=== PATIENT | male | born 1950 | race Caucasian/White ===

== ENCOUNTER 2018-10-04 07:09 | Day surgery (SDC) | payer MEDICARE, OTHER ==
[~2018-10-04] VITALS: Ht 177.8 cm; Wt 104.3 kg
[~2018-10-04 07:09] MED LIST: ASPIR-LOW81 MG PO; CENTRUM SILVER1 EAC6 PO; COZAAR25 MG PO; FAMOTIDINE20 MG PO; NEURONTIN300 MG PO; SIMVASTATIN10 MG PO
--- NOTE | 2018-10-04 11:54 | NUR ---
10/04/18 1154 Ibeth Sánchez SN 1147- PT ARRIVES IN PACU. PT IS NONAROUSABLE TO STIMULI. RESPIRATIONS ARE EVEN AND UNLABORED. 02 SAT'S MID TO HIGH 90'S ON 6 LITERS VIA MASK. OPA IN PLACE.
--- NOTE | 2018-10-04 12:49 | NUR ---
PT HERE TO GET MORE AWAKE TAKING TAXI TO [facility] FOR NIGHT.
--- NOTE | 2018-10-04 14:45 | NUR ---
MORE AWAKE. DRANK JUICE AND WATER.
--- NOTE | 2018-10-05 06:17 | OR ---
[facility] [address] [place], [place] [address] Signed DATE OF OPERATION: 10/04/2018 SURGEON: Sergo Palma MD PREOPERATIVE DIAGNOSES: 1. Distal esophageal dysphagia. 2. Personal history of Schatzki's ring status post dilation. 3. Personal history of gastric polyps. 4. Personal history of colonic polyps. 5. A sister with a history of colonic polyps. POSTOPERATIVE DIAGNOSES: 1. Moderate gastroduodenitis. 2. Distal esophagitis with possible shallow ulcer at GE junction. 3. Inflamed proximal multiple gastric polyps. 4. 4 mm rectal polyps x2. PROCEDURE: 1. EGD with CLOtest and biopsies of the pyloric bulb, antrum, GE junction with balloon dilation of GE junction (18 mm x 54-Austrian). 2. Colonoscopy with cold biopsies. ESTIMATED BLOOD LOSS: None. FINDINGS: No obvious Schatzki's ring visualized. INDICATIONS: Jensen is a 68-year-old gentleman, who was asked to see me for both upper and lower endoscopy. He talked about esophageal dysphagia to solid foods. He said in 2008 he had a barium swallow which showed a Schatzki's ring. Dr. Rankin dilated that with the balloon in 2008. He said his symptoms have returned. Dr. Rankin also mentioned some benign-appearing proximal gastric polyps. In addition, Jensen has had at least three colonoscopies in his life. He said he had colonic polyps removed at least twice and his sister has had colonic polyps removed. He has been on the 5-year rotation. He said his last colonoscopy was in 2010. He has no lower GI complaints. In the office, I gave him a pamphlet on both upper and lower endoscopy. We did review the nature of the 2 tests along with the risks including, but not limited to gas bloating, crampy abdominal pain, bleeding, perforation, requiring surgery, and missed diagnosis. He also Electronically Signed By: SERGO PALMA MD 10/05/18 0617 PATIENT NAME: JENSEN BEE OPERATIVE REPORT DATE OF : 50 REPORT #: [id number] PHYSICIAN: SERGO PALMA MD PCP: NO PRIMARY CARE PHYSICIAN REPORT IS CONFIDENTIAL AND NOT TO BE RELEASED WITHOUT AUTHORIZATION [facility] [address] [place] [id number] Signed understands the need for IV conscious sedation. In the meantime, we did send him for a barium swallow and he does have a very focal narrow area right at the GE junction. The barium pill held up there for several minutes and went through once he swallowed some liquids. He had expressed understanding and wished to proceed. This includes dilation. DESCRIPTION OF PROCEDURE: Jensen was taken into the endoscopy suite and placed in the supine semi-recumbent position. He was given a total of 10 mg of Versed and 200 mcg of fentanyl to cover both cases. Unfortunately, this was not enough. We had to bring our anesthesia provider in with propofol and some ketamine in order to finish a colonoscopy. He also received 8 mg of Zofran and 12.5 mg of Phenergan preoperatively because of his history of nausea with anesthesia. Posterior oropharynx was anesthetized with lidocaine spray. A bite block was utilized for the case. The adult gastroscope was then introduced and advanced under direct visualization of camera without difficulty. He had some saliva and so forth at the GE junction and held up just slightly as it went through, but did not continue to drag. The scope then passed readily out into the duodenum. He clearly has moderate gastroduodenitis. We took biopsies of the duodenum, pyloric bulb and the antrum for pathologic review. We took another biopsy from the antrum for CLOtest. Upon retroflexion of scope he does have multiple inflamed benign-appearing polyps in the proximal half of the stomach. We did take a couple of biopsies of the polyps for pathologic review. He does not have an obvious hiatal hernia with retroflexion of the scope. No ulcerations. No gastric or esophageal varices. The scope was withdrawn up through the area of the GE junction, which was compliant without obvious stricture. We certainly did see a Schatzki's ring. He did have fairly significant inflammatory changes just above the Z-line. There maybe even been a slight ulcer on the one side. It was more consistent with distal esophagitis. We went ahead and took a couple of biopsies in this area. The middle and upper esophagus were unremarkable. After this, we passed our 18 mm (54-Austrian) balloon dilator and we inflated it the GE junction. For some reason, it held for only about a minute and then it had ruptured and so it did not hold the pressure. Nevertheless, we did not feel too strongly about that not seeing an obvious Schatzki's ring. We went ahead and examined the area and we did not see any obvious crack in the mucosa, but it seemed widely patent at the time. Consequently, we did not proceed with an additional balloon or Savary dilator. After this, the gas was suctioned out and the gastroscope removed. Jensen tolerated the procedure quite well. Jensen was then rotated into the left lateral decubitus position. He was maintained on IV sedation with Versed and fentanyl. A digital rectal exam was performed. There was very minimal hemorrhoidal tissue. He had good sphincter tone. A little induration to the prostate but not particularly enlarged. The adult colonoscope was then introduced and we advanced up into the mid colon. He simply could not tolerate advancing the scope. We therefore had an anesthesia provider to come and add some propofol and ketamine. His abdomen was then softened quite nicely and we passed the scope readily Electronically Signed By: SERGO PALMA MD 10/05/18 0617 PATIENT NAME: JENSEN BEE OPERATIVE REPORT DATE OF : 50 REPORT #: [id number] PHYSICIAN: SERGO PALMA MD PCP: NO PRIMARY CARE PHYSICIAN REPORT IS CONFIDENTIAL AND NOT TO BE RELEASED WITHOUT AUTHORIZATION [facility] [address] [place], [place] [address] Signed into the cecum itself. His prep was good. We could easily see the appendiceal orifice, the Chitimacha's foot and the ileocecal valve. The scope was then slowly withdrawn. We saw no pathology throughout the entire colon. We saw no diverticulosis. He had just a couple small polyps in the rectum, which were removed with the help of the cold biopsy forceps. Upon retroflexion of scope it looks like he has some very tiny internal hemorrhoid tissue and/or skin tags. After this, the gas was suctioned out and colonoscope removed. Jensen tolerated his procedure quite well. RECOMMENDATIONS: Jensen will follow up my office in 7 to 14 days to review his results. In the meantime, he has moved to a new area and he has no primary care provider. He is on losartan and simvastatin and we did notice he has tactic he had tachycardia over 100 from the time he entered the room to the time he left. There is a history of a previous abnormal EKG and coronary artery disease and hypertension. Consequently, we had encouraged him to seek a primary care provider sooner rather than later. He did mention Lety Otoole at the [facility]. Sergo Palma MD ALB/MODL /[id number] cc: MD Roxanne Moore, [facility] in [place], [place] Lety Otoole PA-C Copies: SERGO PALMA MD, AMANDA PAC ~ Electronically Signed By: SERGO PALMA MD 10/05/18 0617 PATIENT NAME: JENSEN BEE OPERATIVE REPORT DATE OF : 50 REPORT #: [id number] PHYSICIAN: SERGO PALMA MD PCP: NO PRIMARY CARE PHYSICIAN REPORT IS CONFIDENTIAL AND NOT TO BE RELEASED WITHOUT AUTHORIZATION
--- NOTE | 2018-10-05 10:36 | NUR ---
10/04/18 1700 PT AMB TO [facility]. ATE SOUP AND SANDWICH. ALERT AND ORIENTED. REQ TO GO TO [facility] BY TAXI. STATES HE HAS C PAP MACHINE IN [facility] AND INSTRUCTED TO BE SURE TO USE EVEN IF JUST A NAP. STATES HE ALWAYS USES IT.
== END 2018-10-04 17:05 | disposition home or self-care (01) ==
LOC: DS 07:09 → OPS 07:09 → DS 10:30 → OPS 10:30
PROVIDERS: Colon & Rectal Surgery
PROC: 0DB78ZX Excision of Stomach, Pylorus, Via Natural or Artificial Opening Endoscopic, Diagnostic (ICD-10-PCS; 2018-10-04)
PROC: 0DB68ZX Excision of Stomach, Via Natural or Artificial Opening Endoscopic, Diagnostic (ICD-10-PCS; 2018-10-04)
PROC: 0DB48ZX Excision of Esophagogastric Junction, Via Natural or Artificial Opening Endoscopic, Diagnostic (ICD-10-PCS; 2018-10-04)
PROC: 0DBP8ZX Excision of Rectum, Via Natural or Artificial Opening Endoscopic, Diagnostic (ICD-10-PCS; 2018-10-04)
PROC: 0D758ZZ Dilation of Esophagus, Via Natural or Artificial Opening Endoscopic (ICD-10-PCS; principal; 2018-10-04 10:30)
PROC: 0DB98ZX Excision of Duodenum, Via Natural or Artificial Opening Endoscopic, Diagnostic (ICD-10-PCS; 2018-10-04 10:30)
DX: Z12.11 Encounter for screening for malignant neoplasm of colon (principal); K62.1 Rectal polyp; K29.50 Unspecified chronic gastritis without bleeding; K29.80 Duodenitis without bleeding; K20.9 Esophagitis, unspecified; K31.7 Polyp of stomach and duodenum; I10 Essential (primary) hypertension; E78.00 Pure hypercholesterolemia, unspecified; Z86.010 Personal history of colon polyps; Z83.71 Family history of colonic polyps; Z98.890 Other specified postprocedural states; Z88.8 Allergy status to other drugs, medicaments and biological substances; Z79.82 Long term (current) use of aspirin; Z79.899 Other long term (current) drug therapy
CPT/HCPCS: 86677; C1726; J2250; J2405; J2550; J2704; J3010; J7120

== ENCOUNTER 2023-01-10 16:36 | Observation (INO) | payer MEDICARE, OTHER ==
[~2023-01-10] VITALS: Ht 177.8 cm; Wt 100.5 kg
--- OUTSIDE RECORDS SUMMARY | ~2023-01-10 | XMS | Continuity of Care Document ---
Demographics + + + | Address | [address] | | | [place] [address] | + + + | Preferred Language | Unknown | + + + | Marital Status | | + + + | Christianity Affiliation | Unknown | + + + | Race | White | + + + | Ethnic Group | Not or | + + + Author + + + | Author | [facility] | + + + | Organization | [facility] | + + + | Address | [address] [facility] | | | [place] [address] | + + + | Phone | | + + + Care Team Providers + + + + | Care Gas Well Drilling Manager Name | Role | Phone | + + + + Unavailable | Unavailable | + + + + Unavailable | Unavailable | + + + + Unavailable | Unavailable | + + + + Unavailable | Unavailable | + + + + Allergies and Intolerances + + + + + + | date | description | facility | reaction | severity | + + + + + + | (no date) | Tamsulosin | [facility] | (no reaction) | (no severity) | [facility] | | | + + + + + + | (no date) | Niacin | [facility] | (no reaction) | (no severity) | [facility] | | | + + + + + + | (no date) | Rash | [facility] | (no reaction) | (no severity) | [facility] | | | + + + + + + | (no date) | Niacin | [facility] | (no reaction) | (no severity) | [facility] | | | + + + + + + | (no date) | Niacin | [facility] | (no reaction) | (no severity) | [facility] | | | + + + + + + | (no date) | Tamsulosin | [facility] | (no reaction) | (no severity) | | [facility] | | | + + + + + + | (no date) | niacin | [facility] | (no reaction) | (no severity) | + + + + + + | (no date) | tamsulosin | [facility] | (no reaction) | (no severity) | + + + + + + | (no date) | Tamsulosin | [facility] | (no reaction) | (no severity) | | | | [facility] | | | + + + + + + Encounters No information. Functional Status No information. Immunizations No information. Medications + + + + | date | description | facility | + + + + | 2023-01-02 00:00 | IRON,CARBONYL/VIT C/VIT | [facility] | | | B12/FA | | + + + + | 2023-01-02 00:00 | ASPIRIN | [facility] | + + + + | 2023-01-02 00:00 | ASCORBIC ACID | [facility] | + + + + | 2023-01-02 00:00 | AMLODIPINE BESYLATE | [facility] | + + + + | 2023-01-02 00:00 | FAMOTIDINE | [facility] | + + + + | 2023-01-02 00:00 | SIMVASTATIN | [facility] | + + + + | 2023-01-02 00:00 | METOPROLOL SUCCINATE | [facility] | + + + + | 2023-01-02 00:00 | LOSARTAN POTASSIUM | [facility] | + + + + Problems + + + + | date | description | facility | + + + + | 2021-05-23 18:20:50 | Encephalocele, unspecified | [facility] | + + + + | 2022-12-16 07:40 | UNILATERAL PRIMARY | [facility] | | | OSTEOARTHRITIS, UNSPE | | + + + + | 2022-12-16 07:40 | UNILATERAL PRIMARY | [facility] | | | OSTEOARTHRITIS, LEFT KNEE | | + + + + | 2022-12-16 09:30 | UNILATERAL PRIMARY | [facility] | | | OSTEOARTHRITIS, UNSPE | | + + + + | 2023-01-02 06:05 | Essential (primary) | [facility] | | | hypertension | | + + + + | 2023-01-02 06:05 | UNILATERAL PRIMARY | [facility] | | | OSTEOARTHRITIS, UNSPE | | + + + + | 2023-01-02 06:05 | UNILATERAL PRIMARY | [facility] | | | OSTEOARTHRITIS, LEFT KNEE | | + + + + | 2023-01-02 06:05 | ALLERGY STATUS TO OTH | [facility] | | | DRUG/MEDS/BIOL SUBST STATUS | | | | | | + + + + | 2023-01-02 09:15 | UNILATERAL PRIMARY | [facility] | | | OSTEOARTHRITIS, UNSPE | | + + + + Procedures No information. Results/Labs +--------+--------+ +---------+--------+---------+ | test | date | facility | value | unit | notes | +--------+--------+ +---------+--------+---------+ + + | Result panel 1 | + + + + +-------+ + + + | SARS-COV-2 | 2020-11-05 | [facility] | Negative | (missing) | (missing) | | (COVID19) | 15:22:21 | | | | | | HOLOGIC | | | | | | | NAAT/RNA | | | | | | | MOLECULAR | | | | | | + + +-------+ + + + | SARS-COV-2 | 2020-11-05 | [facility] | Negative | (missing) | First COVID | | (COVID19) | 15:22:21 | | | | test?: yes | | HOLOGIC | | | | | Are you | | NAAT/RNA | | | | | employed in | | MOLECULAR | | | | | healthcare?: | | | | | | | no | | | | | | | Symptomatic | | | | | | | as defined | | | | | | | by the CDC?: | | | | | | | no If | | | | | | | Symptomatic, | | | | | | | What is the | | | | | | | date of | | | | | | | onset?: | | | | | | | Hospitalized | | | | | | | ?: no In | | | | | | | ICU?: no | | | | | | | Resident in | | | | | | | a congregate | | | | | | | care | | | | | | | settings?: | | | | | | | no | | | | | | | ?: | | | | | | | no | + + +-------+ + + + + + | Result panel 2 | + + + + + +-------+ + + | | 2023-01-02 | [facility] | 6.0 | (missing) | (missing) | | (unavailable | [facility]55[facility]07 [facility] | | | | + + + +-------+ + + + + | Result panel 3 | + + + + + +--------+ + + | | 2023-01-02 | [facility] | 64.0 | (missing) | (missing) | | (unavailable | [facility]55[facility]07 [facility] | | | | + + + +--------+ + + + + | Result panel 4 | + + + + + +--------+ + + | | 2023-01-02 | [facility] | 20.3 | (missing) | (missing) | | (unavailable | [facility] | | | | + + + +--------+ + + + + | Result panel 5 | + + + + + +-------+ + + | | 2023-01-02 | [facility] | 7.3 | (missing) | (missing) | | (unavailable | [facility] | | | | + + + +-------+ + + + + | Result panel 6 | + + + + + +-------+ + + | | 2023-01-02 | [facility] | 3.3 | (missing) | (missing) | | (unavailable | [facility] | | | + + + +-------+ + + + + | Result panel 7 | + + + + + +-------+ + + | | 2023-01-02 | [facility] | 5.1 | (missing) | (missing) | | (unavailable | [facility] | | | + + + +-------+ + + + + | Result panel 8 | + + + + + +-------+---------+ + | | 2023-01-02 | [facility] | 100 | mg/dL | (missing) | | (unavailable | [facility]55[facility]07 [facility] | | | | + + + +-------+---------+ + + + | Result panel 9 | + + + + + +------+---------+ + | | 2023-01-02 | [facility] | 13 | mg/dL | (missing) | | (unavailable | [facility]07 [facility] | | | | + + + +------+---------+ + + + | Result panel 10 | + + + + + +--------+---------+ + | | 2023-01-02 | [facility] | 0.88 | mg/dL | (missing) | | (unavailable | [facility]55[facility]07 [facility] | | | | + + + +--------+---------+ + + + | Result panel 11 | + + + + + +------+ + + | | 2023-01-02 | [facility] | 91 | (missing) | (missing) | | (unavailable | [facility] | | | + + + +------+ + + + + | Result panel 12 | + + + + + +---------+ + + | | 2023-01-02 | [facility] | 14.77 | (missing) | (missing) | | (unavailable | [facility]55[facility]07 [facility] | | | | + + + +---------+ + + + + | Result panel 13 | + + + + + +--------+ + + | | 2023-01-02 | [facility] | 5.24 | (missing) | (missing) | | (unavailable | [facility] | | | + + + +--------+ + + + + | Result panel 14 | + + + + + +-------+ + + | | 2023-01-02 | [facility] | 142 | (missing) | (missing) | | (unavailable | [facility] | | | + + + +-------+ + + + + | Result panel 15 | + + + + + +-------+ + + | | 2023-01-02 | [facility] | 3.7 | (missing) | (missing) | | (unavailable | [facility] | | | | + + + +-------+ + + + + | Result panel 16 | + + + + + +-------+ + + | | 2023-01-02 | [facility] | 105 | (missing) | (missing) | | (unavailable | [facility]07 [facility] | | | + + + +-------+ + + + + | Result panel 17 | + + + + + +------+ + + | | 2023-01-02 | [facility] | 31 | (missing) | (missing) | | (unavailable | [facility] | | | + + + +------+ + + + + | Result panel 18 | + + + + + +-------+ + + | | 2023-01-02 | [facility] | 9.7 | (missing) | (missing) | | (unavailable | [facility] | | | + + + +-------+ + + + + | Result panel 19 | + + + + + +-------+---------+ + | | 2023-01-02 | [facility] | 8.8 | mg/dL | (missing) | | (unavailable [facility]55[facility]07 [facility] | | | | + + + +-------+---------+ + + + | Result panel 20 | + + + + + +-------+ + + | | 2023-01-02 | [facility] | 7.6 | (missing) | (missing) | | (unavailable | [facility] | | | | + + + +-------+ + + + + | Result panel 21 | + + + + + +-------+ + + | | 2023-01-02 | [facility] | 4.1 | (missing) | (missing) | | (unavailable [facility]07 [facility] | | | | + + + +-------+ + + + + | Result panel 22 | + + + + + +-------+ + + | | 2023-01-02 | [facility] | 3.5 | (missing) | (missing) | | (unavailable [facility]07 [facility] | | | | + + + +-------+ + + + + | Result panel 23 | + + + + + +--------+ + + | | 2023-01-02 | [facility] | 1.17 | (missing) | (missing) | | (unavailable [facility]07 [facility] | | | | + + + +--------+ + + + + | Result panel 24 | + + + + + +--------+ + + | | 2023-01-02 | [facility] | 17.3 | (missing) | (missing) | | (unavailable | [facility] | | | + + + +--------+ + + + + | Result panel 25 | + + + + + +-------+ + + | | 2023-01-02 | [facility] | 1.0 | (missing) | (missing) | | (unavailable | [facility] | | | + + + +-------+ + + + + | Result panel 26 | + + + + + +------+ + + | | 2023-01-02 | [facility] | 21 | (missing) | (missing) | | (unavailable | [facility] | | | + + + +------+ + + + + | Result panel 27 | + + + + + +------+ + + | | 2023-01-02 | [facility] | 32 | (missing) | (missing) | | (unavailable | [facility] | | | + + + +------+ + + + + | Result panel 28 | + + + + + +------+ + + | | 2023-01-02 | [facility] | 87 | (missing) | (missing) | | (unavailable | [facility] | | | + + + +------+ + + + + | Result panel 29 | + + + + + +--------+ + + | | 2023-01-02 | [facility] | 51.4 | (missing) | (missing) | | (unavailable | [facility] | | | | + + + +--------+ + + + + | Result panel 30 | + + + + + +--------+ + + | | 2023-01-02 | [facility] | 98.1 | (missing) | (missing) | | (unavailable | [facility] | | | | + + + +--------+ + + + + | Result panel 31 | + + + + + +--------+ + + | | 2023-01-02 | [facility] | 33.0 | (missing) | (missing) | | (unavailable | [facility] | | | + + + +--------+ + + + + | Result panel 32 | + + + + + +--------+ + + | | 2023-01-02 | [facility] | 33.7 | (missing) | (missing) | | (unavailable | [facility] | | | | + + + +--------+ + + + + | Result panel 33 | + + + + + +--------+ + + | | 2023-01-02 | [facility] | 12.6 | (missing) | (missing) | | (unavailable | [facility] | | | + + + +--------+ + + + + | Result panel 34 | + + + + + +-------+ + + | | 2023-01-02 | [facility] | 157 | (missing) | (missing) | | (unavailable [facility] | | | + + + +-------+ + + Social History No information. Vital Signs + + + +---------+ | date | measurement | value | units | + + + +---------+ | 2022-12-20 00:00 | BMI | 32.4 | kg/m2 | + + + +---------+ | 2022-12-20 00:00 | height_metric | 177.8 | cm | + + + +---------+ | 2022-12-20 00:00 | height_standard | 70 | in | + + + +---------+ | 2022-12-20 00:00 | weight_metric | 102.27 | kg | + + + +---------+ | 2022-12-20 00:00 | weight_standard | 225.47 | lb | + + + +---------+ | 2023-01-02 00:00 | BP_diastolic | 74 | mmHg | + + + +---------+ | 2023-01-02 00:00 | BP_systolic | 112 | mmHg | + + + +---------+ | 2023-01-02 00:00 | heart_rate | 87 | /min | + + + +---------+ | 2023-01-02 00:00 | o2_saturation | 93 | % | + + + +---------+ | 2023-01-02 00:00 | respiration_rate | 17 | /min | + + + +---------+ | 2023-01-02 00:00 | temperature_metric | 36.67 | C | | | | | | + + + +---------+ | 2023-01-02 00:00 | | 98 | F | | | temperature_standar | | | | | d | | | + + + +---------+"
[~2023-01-10 16:36] MED LIST changes: +IRON 100 PLUS1 EACH PO; +METOPROLOL SUCC25 MG PO; +NORCO 10-325 T1 EACH PO; +NORVASC2.5 MG PO; +OMEPRAZOLE20 MG PO; +VITAMIN C250 MG PO
[2023-01-10 18:19] VITALS: BP 141/77
--- NOTE | 2023-01-10 19:15 | NUR ---
REPORT RECEIVED FROM MIRIAN GARCIA. pt RESTING IN BED, MIRIAN SPENCER AT BEDSIDE FINISHING ADMISSION. pt DENIES NEEDS AT THIS TIME. LEFT LEG ELEVATED ON PILLOW. MIGUEL WRAP IN PLACE, CDI. CALL LIGHT IN REACH. pt VERBALIZES UNDERSTANDING TO USE CALL LIGHT WHEN FINISHED.
[2023-01-10 20:15] VITALS: BP 128/67
--- NOTE | 2023-01-10 20:15 | NUR ---
PHONE CALL RETURNED TO DR. BLANCA. UPDATED ON pt LABS. TELEPHONE ORDER RECEIVED FOR SCHEDULED ZYRTEC DAILY, REPEATED BACK TO VERIFY. ORDER UPDATED. pt VOIDING IN URINAL AT THIS TIME, BRUCE ELI IN ROOM.
--- NOTE | 2023-01-10 20:16 | NUR ---
PATIENTS VITAL SIGNS AND OUTPUT MEASURED AND DOCUMENTED. ROOM TIDIED, CALL LIGHT LEFT WITHIN REACH, AND FRESH ICE WATER PROVIDED. NO OTHER IMMEDIATE NEEDS AT THIS TIME.
--- NOTE | 2023-01-10 20:59 | NUR ---
pt RESTING IN BED AWAKE, IV SITE FLUSHED WNL. IV ANTIBIOTIC INFUSING. pt DENIES PAIN. STATES "SOME STIFFNESS". DENIES NEED FOR PRN MEDICATION. ASSESSMENT COMPLETE. PHONE CALL TO PA, TELEPHONE ORDER FOR TYLENOL PRN AND VENOUS FOOT PUMPS. ORDERS REPEATED BACK TO VERIFY. NOTIFIED OF FEINT PULSE PALPATED LEFT FOOT, EDEMA AND REPORTED NUMBNESS. pt COMPLETES ORAL CARE. RT NOW IN ROOM FOR CPAP ADMINISTRATION. BED ALARM ON.
--- NOTE | 2023-01-10 21:33 | NUR ---
PRN TYLENOL ADMINISTERED FOR "DISCOMFORT" IN LEFT KNEE. pt DOES NOT RATE PAIN. LEG ELEVATED ON PILLOW. VENOUS FOOT PUMPS APPLIED. IV SL WNL. IV ANTIBIOTIC COMPLETE. CALL LIGHT IN REACH.
--- NOTE | 2023-01-10 22:55 | NUR ---
RECEIVED REPORT FROM DAY SHIFT RN. PATIENT PLACED ON CPAP. PATIENT AJIT ANY PAIN. PATIENT IS RESTING IN BED LLE ELEVATED ON X2 PILLOWS. CRYO IN PLACE. SCDS IN PLACE. PATIENT DENIES ANY FURTHER NEEDS. CALL LIGHT IN REACH.
[2023-01-11 01:11] VITALS: BP 135/78
--- NOTE | 2023-01-11 02:08 | NUR ---
PATIENT CALLED AND REQUESTED CPAP BED REMOVED. PATIENT UNABLE TO TOLERATE HOSPITAL CPAP. PATIENT PLACED ON 2L VIA NC FOR SLEEP. PATIENT STATED "I WORE OXYGEN THE LAST TIME I STAYED IN THE HOSPITAL". PATIENT DENIES ANY PAIN. PATIENTS CRYO REFILLED WITH ICE AND APPLIED TO LEFT KNEE. SCDS IN PLACE. PATIENTS LLE IS ELEVATED ON X2 PILLOWS. PATIENTS LLE SWELLING HAS IMPROVED. PATIENTS LLE CONTINUES TO BED RED. PEDAL PULSE ARE NOTED. PATIENT DENIES ANY FURTHER NEEDS. CALL LIGHT IN REACH.
--- NOTE | 2023-01-11 04:20 | NUR ---
PATIENTS SCHEDULED ABX INFUSING PER ORDER. PATIENT PROVIDED WITH SNACK. PATIENT DENIES ANY PAIN. PATIENT DENIES ANY NEEDS. CALL LIGHT IN REACH.
[2023-01-11 05:38] VITALS: BP 139/81
--- NOTE | 2023-01-11 06:04 | NUR ---
PATIENTS VITALS TAKEN AND RECORDED. INTAKE AND OUTPUT RECORDED. PATIENTS CRYO REFILLED AND APPLIED TO LEFT KNEE. PATIENTS LEFT LOW EXT SWELLING AND REDNESS HAVE DECREASED. PATIENT HAS STRONG PEDAL PULSES. PATIENT HAS LLE ELEVATED ON X2 PILLOWS. SCDS IN USE. PATIENT IS ON RA. PATIENT IS SL. PATIENT IS AAOX4. PATIENT DENIES ANY PAIN. PATIENT PROVIDED WITH FRESH WATER. PATIENT DENIES ANY FURTHER NEEDS. CALL LIGHT IN REACH.
--- NOTE | 2023-01-11 07:30 | NUR ---
recieved shift report from [facility] nurse. Pt is in bed currently with left leg elevated. pt is smiling and laughing. call light is within reach.
--- NOTE | 2023-01-11 08:01 | NUR ---
PT IN BED, ASKED FOR HIS PHONE, PT SEEMED IN GREAT SPIRITS, NO CARES NEEDED AT THIS TIME. CALL LIGHT WITHIN REACH
--- NOTE | 2023-01-11 08:20 | NUR ---
Spoke with Eyal. He states he lives in [place] with his . He recently had surgery on his L knee. He saw PT in [place] yesterday and the [facility] and they took pictures and sent to Dr. To. He states he has been doing well walking. There are no issues for him getting in or out of his home. He states he usually splits the house hold chores with his , she has been completing since he had surgery. He has a walker, cane, and walking stick at home. States he prefers his walking stick. He has a Breg Cooler in place on his L knee. He believes he will dc today. Encouraged him to not downing out too fast as they are close the three hours away. He states he will go with whatever the decides. He denies any needs, denies financial issues. Plans on dc to home when cleared medically.
--- NOTE | 2023-01-11 09:00 | NUR ---
PT IS CURRENTLY SITTING UP ALERT AND ORIENTED AND REQUESTING ICE CREAM. PT PEDAL PULSES IN LEFT LEG ARE STRONG. TOLERATING SCDS, COLD COMPRESS, AND ELEVATED LEFT LEG. CALL LIGHT WITHIN REACH.
[2023-01-11 09:41] VITALS: BP 126/72
--- NOTE | 2023-01-11 09:51 | NUR ---
CRYO REFILLED WITH IC, VITALS DONE NOTHING TO REPORT AT THIS TIME CALL LIGHT WITHIN REACH
--- NOTE | 2023-01-11 13:39 | NUR ---
PT IN CHAIR JUST FINISHING UP PT. PT CALLED OUT FOR ME TO ENTER. VERIFIED WITH PT THAT ENTRY WAS OK. PT CONSENTED TO MY ENTRY AND LEFT NOT LONG AFTER. EXERCISED MINISTRY OF PRESENCE PT DESCRIBED DISCOVERY OF INFECTION AND HIS HOPE FOR DISCHARGE TOMORROW. REMEMBERED ME FROM VISIT ON DAY OF SURGERY. ALERT AND ORIENTED. CONSTENTED TO PRAYER. PRAYED.
[2023-01-11 14:17] VITALS: BP 121/75
--- NOTE | 2023-01-11 15:30 | NUR ---
PT WAS RESTING WHEN I ENTERED AND WANTED TO SWITCH FROM CHAIR BACK INTO BED. MED WAS GIVEN. PT IS CURRENTLY WATCHING TELEVISION AND REQUESTING ICECREAM. ICE CREAM GIVEN. CALL LIGHT WITHIN REACH.
[2023-01-11] MEDS ORDERED: CELECOXIB200 MG PO (15:35)
[2023-01-11 17:36] VITALS: BP 120/74
--- NOTE | 2023-01-11 19:31 | NUR ---
REPORT RECEIVED FROM MIRIAN SPENCER AND JOSE. pt RESTING IN BED AWAKE. DENIES PAIN. CRYO CUFF WITH ICE IN PLACE. LEFT LEG ELEVATED ON PILLOW. pt DENIES NEEDS. CALL LIGHT IN REACH. URINAL EMPTIED.
[2023-01-11 20:33] VITALS: BP 117/92
--- NOTE | 2023-01-11 20:59 | NUR ---
IN pt ROOM FOR MEDICATION ADMINISTRATION. IV SITE FLUSHED WNL. IV ANTIBIOTIC INFUSING WNL. pt DENIES PAIN AT REST. ASSISTED TO RESTROOM, SBA WITH FWW FOR ORAL CARE, TO SHAVE. pt COMPLAINS OF SOME STIFFNESS, BUT STATES IT FEELS GREAT TO MOVE A LITTLE. PRN TYLENOL ADMINSITERED. pt REFUSES 1000 MG DOSE, 500 MG ADMINSITERED. pt REFUSES GABAPENTIN, STATES "I WOULD BE FINISHED WITH MY DOSE AT HOME AND IT MAKES ME TOO TIRED". BACK TO BED. LEG ELEVATED. CSM INTACT BLE. EDEMA IN FOOT TRACE, IMPROVED FROM PREVIOUS SHIFT, 1+ EDEMA LLE IN MONTAGUE. DRESSING CDI. CRYO CUFF REFILLED AND IN PLACE. CALL LIGHT IN REACH.
--- NOTE | 2023-01-11 21:33 | NUR ---
ABX COMPLETE, PT SL. ALL SUPPLIES WITHIN REACH.
--- NOTE | 2023-01-11 23:20 | NUR ---
CALL LIGHT ANSWERED. SCD MACHINE ALARMING. FOOT PUMPS ADJUSTED. pt CLOSES EYES, BREATHING UNLABORED. 2L OXYGEN BY NC IN PLACE FOR SLEEP. CALL LIGHT IN REACH.
--- NOTE | 2023-01-12 01:48 | NUR ---
pt RESTING IN BED WITH EYES CLOSED. BREATHING UNLABORED. LEFT LEG ELEVATED. FOOT PUMPS AND CRYO CUFF IN PLACE. NO DISTRESS NOTED.
[2023-01-12 04:36] VITALS: BP 133/80
--- NOTE | 2023-01-12 04:45 | NUR ---
IN ROOM FOR ANTIBIOTIC ADMINISTRATION. pt AWAKE, RESTING IN BED. DENIES PAIN. CSM INTACT BLE. LEG ELEVATED ON PILLOW. CRYO CUFF REFILLED WITH ICE. EDEMA IMPROVED IN LLE. URINAL EMPTIED. ICE WATER AND PO SNACK PROVIDED. VSS. CALL LIGHT IN REACH.
--- NOTE | 2023-01-12 05:12 | NUR ---
IV ANTIBIOTIC COMPLETE. KADE WNL. pt HAS CALL LIGHT AND PERSONAL SUPPLIES IN REACH. NO REQUESTS.
--- NOTE | 2023-01-12 07:25 | NUR ---
Report received from night RN - Pt awake resting bed, cryo cuff and SCDs in place. Pt denies needs at this time, call light in reach.
[2023-01-12] MEDS ORDERED: OXYCODONE HCL5 MG PO (07:33)
[2023-01-12] MEDS ORDERED: CETIRIZINE HCL10 MG PO (07:33)
--- NOTE | 2023-01-12 07:33 | NUR ---
RN rounding with MD - POC to al home discussed, pt states understanding and agreeance. All questions answered.
[2023-01-12] MEDS ORDERED: CEFUROXIME500 MG PO (07:34)
--- NOTE | 2023-01-12 07:50 | NUR ---
Spoke with Dr. To. He has written dc orders for this pt to dc today.
--- NOTE | 2023-01-12 09:00 | NUR ---
Spoke with Randal. He denies needs. Will dc to home today, he is waiting for his for dc.
--- NOTE | 2023-01-12 09:11 | NUR ---
MED REC COMPLETE
--- NOTE | 2023-01-12 09:49 | NUR ---
PT IN PHYSICAL THERAPY ROOM FOR EXERCISE TREATMENT. ASSESSMENT AND MEDS DELAYED AT THIS TIME.
--- NOTE | 2023-01-12 10:10 | NUR ---
ASSESSMENT COMPLETE - REDNESS AND SWELLING OF LEFT KNEE/MONTAGUE CONTINUALLY IMPROVING. PT RATES PAIN 1/10 AFTER WORKING WITH PHYSICAL THERAPY. CONINTUAL EDUCATION PROVIDED ON SAMANTHA TO USE CRYO CUFF, DEMONSTRATED USAGE WITH PT, STATES UNDERSTANDING. ALL DC INSTRUCTIONS COVERED. PT AWARE OF MEDICATIONS AT PHARMACY AND EMPHASIZED NEED TO TAKE PRESCRIBED. VS WNL.
[2023-01-12 10:16] VITALS: BP 131/77
--- NOTE | 2023-01-12 13:12 | NUR ---
PHYSICAL THERAPY IN ROOM WITH PT. PRAYED FOR ONGOING HEALING FROM [facility]. DID NOT DISTURB THERAPY SESSION.
== END 2023-01-12 11:44 | disposition home or self-care (01) ==
LOC: MS 16:36
PROVIDERS: ADMIT Specialist; ATTEND Specialist
DX: M96.840 Postprocedural hematoma of a musculoskeletal structure following a musculoskeletal system procedure (principal); Y83.8 Other surgical procedures as the cause of abnormal reaction of the patient, or of later complication, without mention of misadventure at the time of the procedure; M17.12 Unilateral primary osteoarthritis, left knee; G47.30 Sleep apnea, unspecified; Z79.82 Long term (current) use of aspirin; Z79.899 Other long term (current) drug therapy; Z88.8 Allergy status to other drugs, medicaments and biological substances
CPT/HCPCS: 36415; 80053; 82784; 85025; 85651; 86140; 94660; 97110; 97161; 97530; A9270; J0697

== ENCOUNTER 2024-08-29 05:50 | Day surgery (SDC) | payer MEDICARE, OTHER ==
[~2024-08-29] VITALS: Ht 177.8 cm; Wt 101.0 kg
[~2024-08-29 05:50] MED LIST changes: -ASPIR-LOW81 MG PO; +CEFUROXIME500 MG PO; +CELECOXIB200 MG PO; +CETIRIZINE HCL10 MG PO; +LO-DOSE ASPIRIN81 MG PO; +OXYCODONE HCL5 MG PO
[2024-08-29 06:56] VITALS: BP 139/86
[2024-08-29] MEDS ORDERED: LIDOCAINE HCL 1% 5 ML SDV INJ ONE (07:00)
[2024-08-29] MEDS ORDERED: LACTATED RINGER'S 1,000 ML IV SCH (07:00)
[2024-08-29] MEDS ORDERED: IBLOOD GLUCOSE TEST STRIP 1 EA TEST VI PRN (07:00)
[2024-08-29] MEDS ORDERED: CEFAZOLIN SODIUM 2 GM/20 ML SYR IV SCH (07:00)
[2024-08-29] MEDS ORDERED: propofoL 200 MG/20 ML VIAL ONE (08:55)
[2024-08-29] MEDS ORDERED: LIDOCAINE HCL 2% 5 ML SDV ONE (08:55)
[2024-08-29] MEDS ORDERED: fentaNYL citrate 100 MCG/2 ML VIAL ONE (09:09)
[2024-08-29] MEDS ORDERED: ondansetron HCL 4 MG/2 ML VIAL ONE (09:09)
--- NOTE | 2024-08-29 12:00 | OR ---
[facility] [address] [place], [place] [address] Signed DATE OF OPERATION: 08/29/2024 SURGEON: Sergo Palma MD PREOPERATIVE DIAGNOSES: 1. A personal history of colonic polyps. 2. A sister with a history of colonic polyps. POSTOPERATIVE DIAGNOSES: 1. 4 mm polyp at base of cecum. 2. 4 mm polyp at 75 cm in transverse colon. 3. 4 mm polyp at 23 cm in sigmoid colon. 4. Tortuous sigmoid colon. PROCEDURE: Colonoscopy with hot biopsy. ESTIMATED BLOOD LOSS: None. INDICATIONS: Jensen is a 74-year-old gentleman, asked to see me for a followup colonoscopy. [place] hours out [place] the country away from our hospital. He told me his had from her lung cancer and pulmonary embolism so forth. I had helped him with a colonoscopy in 2019 at the age of 69. He had two small hyperplastic polyps in the rectum. We used 10 mg of Versed and 200 mcg of fentanyl and he was still awake. We had to have an anesthesia provider come and help us with monitored anesthesia care with propofol infusion and ketamine. He told me he underwent three colonoscopies before I met him. He said he has had polyps out on two different occasions. He was told to stay on the five year plan. He moved here from [place] of state. He also told me his sister had colonic polyps. He did have significant postoperative nausea and vomiting and did well with Zofran and Phenergan. He also has significant sleep apnea. He does not have any current lower GI complaints. In the office, I gave him a pamphlet on colonoscopy. He recalls the nature of the test. There is risk including, but not limited to gas bloating, crampy abdominal pain, bleeding, perforation requiring surgery, and missed diagnosis. We also reviewed the written instructions for the bowel prep line by line. It is the same bowel prep he took previously. He also understands the need for monitored anesthesia care as we described above. He is going to have a friend help him get home afterwards. He came last night and stated at hotel and he will stay here with his friend until 24 hours of have passed back home. He has expressed Electronically Signed By: SERGO PALMA MD 08/29/24 [facility] PATIENT NAME: JENSEN BEE OPERATIVE REPORT DATE OF : 50 REPORT #: [id number] PHYSICIAN: SERGO PALMA MD PCP: RASTA JOHNSON REPORT IS CONFIDENTIAL AND NOT TO BE RELEASED WITHOUT AUTHORIZATION [facility] [address] [place] [id number] Signed understanding, would like to proceed. PROCEDURE IN DETAIL: Jensen was taken into our endoscopy suite and placed in the left lateral decubitus position. He was given monitored anesthesia care with propofol infusion. He was coughing enough, we had to add a little bit of fentanyl because of that we also added some Zofran. He did receive some antibiotic for the left knee replacement. A digital rectal exam was performed. No external hemorrhoids. Good sphincter tone. No masses. The adult colonoscope was introduced and advanced all the way around into the cecum under direct visualization of camera. It took a while to get through his tortuous sigmoid colon. We needed the help from our nurse. It took quite a bit of attention from our anesthesia provider with his airway. We eventually made it into the cecum itself. Fortunately, his prep was good. We could easily see the appendiceal orifice and ileocecal valve. The scope was then slowly withdrawn. We took out the above-mentioned polyps with the help of hot biopsy forceps. We did not see any diverticula. The rectum was unremarkable. Upon retroflexion of scope we did not see any additional pathology above the anal canal. After this, the gas was suctioned out and colonoscope removed. Overall, Jensen tolerated the procedure quite well. RECOMMENDATIONS: Jensen can follow up my office in 7 to 14 days to review his biopsy results. He has a very difficult airway. He will always need monitored anesthesia care. Sergo Palma MD ALB/MODL /[id number] cc: MD Rasta Moore PA Electronically Signed By: SERGO PALMA MD 08/29/24 1200 PATIENT NAME: JENSEN BEE OPERATIVE REPORT DATE OF : 50 REPORT #: [id number] PHYSICIAN: SERGO PALMA MD PCP: RASTA JOHNSON REPORT IS CONFIDENTIAL AND NOT TO BE RELEASED WITHOUT AUTHORIZATION [address] [address] Signed Copies: SERGO PALMA MD ~ Electronically Signed By: SERGO PALMA MD 08/29/24 1200 PATIENT NAME: JENSEN BEE KENTRELL OPERATIVE REPORT DATE OF : 50 REPORT #: [id number] PHYSICIAN: SERGO PALMA MD PCP: RASTA JOHNSON REPORT IS CONFIDENTIAL AND NOT TO BE RELEASED WITHOUT AUTHORIZATION
[2024-08-29] MEDS ORDERED: PANTOPRAZOLE SODIUM 40 MG TABEC PO SCH ×2 (12:40→13:00)
[2024-08-29] MEDS ORDERED: DEXTROSE 5% - LACTATED RINGERS 1,000 ML IV SCH ×2 (12:45→13:00)
[2024-08-29] MEDS ORDERED: ACETAMINOPHEN 325 MG TAB PO PRN ×2 (12:45→13:00)
[2024-08-29] MEDS ORDERED: PROCHLORPERAZINE EDISYLATE 10 MG/2 ML VIAL IV PRN ×2 (12:45→13:00)
[2024-08-29] MEDS ORDERED: ACETAMINOPHEN 650 MG SUPP PR PRN ×2 (12:45→13:00)
[2024-08-29] MEDS ORDERED: HYDROCODONE/ACETA 5/325 TAB PO PRN ×2 (12:45→13:00)
[2024-08-29] MEDS ORDERED: ondansetron HCL 4 MG/2 ML VIAL IV PRN ×2 (12:45→13:00)
[2024-08-29] MEDS ORDERED: HYDROmorphone HCL 1 MG/ML SYR IV PRN ×2 (12:45→13:00)
[2024-08-29 13:03] VITALS: BP 136/72
[2024-08-29 16:16] VITALS: BP 136/72
[2024-08-29 16:21] LABS: BASOPHILS 0.4 % (0-2); EOSINOPHILS 0.6 % (0-6); HEMATOCRIT 51.2 % (35.0-50.0); HEMOGLOBIN 17.8 g/dL (12.0-18.0); LYMPHOCYTES 15.1 % (24-44); MCH 34.1 (27-36); MCHC 34.9 g/dl (30-36); MCV 97.7 fl (81-99); MONOCYTES 7.3 % (0-12); NEUTROPHILS 76.6 % (39-80); PLATELET COUNT 165 K/uL (140-440); RBC 5.24 M/ul (4.3-5.7); RDW 12.9 (10.5-15.0)
[2024-08-29 16:38] LABS: ANION GAP 11.3 (7-21); BUN/CREATININE RATIO 13.95 (6.0-28.6); CREATININE, SERUM 0.86 mg/dL (0.70-1.30); MAGNESIUM 2.2 mg/dL (1.8-2.4); PHOSPHORUS, INORGANIC 3.2 mg/dL (2.5-4.9); POTASSIUM 3.3 mmol/L (3.5-5.1)
[2024-08-29] MEDS ORDERED: POTASSIUM CHLORIDE 10 MEQ TABCR PO ONE ×2 (17:30→22:00)
[2024-08-29] MEDS ORDERED: FUROSEMIDE 40 MG/4 ML VIAL IV ONE (17:30)
[2024-08-29] MEDS ORDERED: AMOXICILLIN/CLAVULANATE K 875 MG TAB PO SCH (17:30)
[2024-08-29 18:23] VITALS: BP 135/83
[2024-08-29 20:10] VITALS: BP 126/70
[2024-08-29] MEDS ORDERED: ATORVASTATIN 20 MG TAB PO SCH (21:00)
[2024-08-29] MEDS ORDERED: FAMOTIDINE 20 MG TAB PO SCH (21:00)
[2024-08-29 21:58] VITALS: BP 126/70
[2024-08-29] MEDS ORDERED: POTASSIUM CHLORIDE 10 MEQ/100 ML BAG IV ONE ×2 (22:30→23:15)
[2024-08-29] MEDS ORDERED: POTASSIUM CHLORIDE 10 MEQ/100 ML BAG IV SCH (23:00)
[2024-08-30] VITALS (10 sets, daily range): BP systolic 100–129; BP diastolic 56–77
[2024-08-30 05:37] LABS: BASOPHILS 0.2 % (0-2); EOSINOPHILS 0.2 % (0-6); HEMATOCRIT 53.9 % (35.0-50.0); HEMOGLOBIN 18.8 g/dL (12.0-18.0); LYMPHOCYTES 3.4 % (24-44); MCH 34.1 (27-36); MCHC 34.8 g/dl (30-36); MONOCYTES 9.2 % (0-12); PLATELET COUNT 153 K/uL (140-440); RDW 12.9 (10.5-15.0)
[2024-08-30 05:53] LABS: ANION GAP 11.3 (7-21); BUN/CREATININE RATIO 14.28 (6.0-28.6); CALCIUM 8.3 mg/dL (8.5-10.1); CREATININE, SERUM 1.19 mg/dL (0.70-1.30); MAGNESIUM 1.8 mg/dL (1.8-2.4); PHOSPHORUS, INORGANIC 3.1 mg/dL (2.5-4.9); POTASSIUM 4.3 mmol/L (3.5-5.1)
[2024-08-30] MEDS ORDERED: MAGNESIUM SULFATE 2 GM/50 ML BAG IV ONE (06:15)
[2024-08-30] MEDS ORDERED: LACTATED RINGER'S 1,000 ML IV SCH (08:00)
[2024-08-30] MEDS ORDERED: METOPROLOL SUCCINATE 25 MG TABCR PO SCH ×2 (09:00)
[2024-08-30] MEDS ORDERED: AMLODIPINE BESYLATE 2.5 MG TAB PO SCH ×2 (09:00)
[2024-08-30] MEDS ORDERED: ALBUTEROL1.25 MG/3 INH (17:19)
[2024-08-31 04:50] VITALS: BP 95/54
[2024-08-31 05:21] VITALS: BP 95/54
[2024-08-31 05:50] LABS: BASOPHILS 0.3 % (0-2); EOSINOPHILS 2.7 % (0-6); HEMATOCRIT 49.8 % (35.0-50.0); HEMOGLOBIN 17.2 g/dL (12.0-18.0); LYMPHOCYTES 23.8 % (24-44); MCHC 34.5 g/dl (30-36); MCV 98.6 fl (81-99); MONOCYTES 13.6 % (0-12); NEUTROPHILS 59.6 % (39-80); PLATELET COUNT 149 K/uL (140-440); RBC 5.05 M/ul (4.3-5.7); RDW 12.9 (10.5-15.0)
[2024-08-31 05:56] LABS: ANION GAP 10.9 (7-21); BUN/CREATININE RATIO 16.66 (6.0-28.6); CALCIUM 8.2 mg/dL (8.5-10.1); CREATININE, SERUM 1.02 mg/dL (0.70-1.30); MAGNESIUM 2.2 mg/dL (1.8-2.4); PHOSPHORUS, INORGANIC 1.9 mg/dL (2.5-4.9); POTASSIUM 3.9 mmol/L (3.5-5.1)
[2024-08-31] MEDS ORDERED: SOD PHOS MONO/SOD PHOS DIBAS 250 MG TAB PO ONE (07:45)
[2024-08-31] MEDS ORDERED: AMOX TR-K CLV1 EAC1 PO (10:26)
[2024-08-31 10:29] VITALS: BP 98/64
[2024-08-31 10:33] VITALS: BP 101/66
--- NOTE | 2024-09-01 08:37 | DS ---
[facility] [address] [place], [place] [address] Signed ADMISSION DATE: 08/29/2024 DISCHARGE DATE: 08/31/2024 FINAL DIAGNOSES: 1. Postoperative hypoxia.. 2. Possible aspiration pneumonitis. PROCEDURES PERFORMED: 1. Multiple chest x-rays. 2. Colonoscopy. HISTORY OF PRESENT ILLNESS: Jensen is a 74-year-old gentleman, who came on 08/29/2024 for a followup colonoscopy. He had three small biopsies performed. He was in the left lateral decubitus position with monitored anesthesia care. For some reason, he had a lot of phlegm that required quite a bit of suctioning. He had been coughing and required a lot of fentanyl to settle his cough. He was hypoxic in the recovery room, so we decided to keep him overnight. He happens to live 2[place]5 hours away out of the country. He does have some neighbors, but he lives alone since his last year. HOSPITAL COURSE: Jensen was admitted as above. He actually did very well. He had brought his CPAP machine with him so we used that each night. His lungs I think were at baseline based on his history, his physical exam as well as his chest x-rays. We did have our Internal Medicine Service see him. They did provide him with some Augmentin. His white count is normal along with the neutrophils. His hemoglobin is at its baseline and runs a little high around 17 to 18, which I suspect he has some chronic hypoxia. He told me it is not uncommon for him to run his O2 sats in the 80s even at home. He looks and feels much better today. He is tolerating his liquid diet. He has had multiple bowel movements. A little blood from the biopsies, but otherwise it has been good. He is back on his chronic medications except the aspirin. He has been asking last two days to go home. I think at this point he is markedly improved. I think he will be fine. DISCHARGE PLANS AND MEDICATIONS: Jensen will be discharged home with Augmentin 875 mg one tablet p.o. b.i.d. for three additional days. That will give him five days total. He will resume all his chronic medications except the aspirin. He can resume the aspirin on 09/05/2024. He will follow a regular diet. He is welcome to perform his activities of daily living including walking up and down stairs and showering, bathing as usual. He should not do any heavy pushing, pulling, lifting over about 20 pounds. He is scheduled for repair of his umbilical hernia at the end of this month. I think that will be fine. The Electronically Signed By: SERGO PALMA MD 09/01/24 0837 PATIENT NAME: JENSEN BEE DISCHARGE SUMMARY DATE OF : 50 REPORT #: [id number] PHYSICIAN: SERGO PALMA MD PCP: RASTA JOHNSON REPORT IS CONFIDENTIAL AND NOT TO BE RELEASED WITHOUT AUTHORIZATION [address] [address] Signed anesthesia provider already said he would probably have a spinal and we just added some local anesthetic and that would be much better for Jensen given his age and his body habitus. He is well aware of that and told me that is how at his knee surgery. We can call him with the biopsy results from the colonoscopy or we can simply review that when he comes back after his umbilical hernia repair. He has expressed understanding, agrees above plan. I have also discussed this with our hospitalist, Dr. Rashid. He has expressed understanding would like to proceed as above. Sergo Palma MD ALB/MODL /[id number] cc: MD Rasta Moore Copies: SERGO PALMA MD, AMANDA PA ~ Electronically Signed By: SERGO PALMA MD 09/01/24 0837 PATIENT NAME: JENSEN BEE DISCHARGE SUMMARY DATE OF : 50 REPORT #: [id number] PHYSICIAN: SERGO PALMA MD PCP: RASTA JOHNSON REPORT IS CONFIDENTIAL AND NOT TO BE RELEASED WITHOUT AUTHORIZATION
--- NOTE | 2024-09-02 10:43 | PATH ---
[facility] [address] [facility] [place] [place] [address] Signed SPECIMEN(S): A CECUM COLON POLYP SPECIMEN(S): B TRANSVERSE COLON POLYP AT 25 CM SPECIMEN(S): C SIGMOID POLYP AT 23 CM SPECIMEN SOURCE: A. CECUM COLON POLYP B. TRANSVERSE COLON POLYP AT 25 CM C. SIGMOID POLYP AT 23 CM CLINICAL HISTORY: Pre-: History of polyps, post: Polyps x 3 FINAL PATHOLOGIC DIAGNOSIS: A. Cecum, polypectomy: - Tubular adenoma B. Colon, transverse, polypectomy: - Inflammatory-type polyp C. Colon, sigmoid at 23 cm, polypectomy: - Hyperplastic polyp BRP MICROSCOPIC EXAMINATION: Histologic sections of all submitted blocks are examined by light microscopy. These findings, together with the gross examination, support the pathologic diagnosis. GROSS DESCRIPTION: A. The specimen, labeled and designated "Ezequiel, V, cecum colon polyp," is received in formalin and consists of two martin soft tissue fragments, ranging from 0.2-0.3 cm. Entirely submitted in (A1). B. The specimen, labeled and designated "Ezequiel, V, transverse colon polyp," is received in formalin and consists of one martin soft tissue fragment, 0.3 cm. Entirely submitted in (B1). C. The specimen, labeled and designated "Ezequiel, V, sigmoid polyp at 23 cm," is received in formalin and consists of one mratin soft tissue fragment, 0.3 cm. Entirely submitted in (C1). AB (under the direct supervision of a pathologist) The Gross Description was prepared using a voice recognition system. The report was reviewed for accuracy; however, sound-alike word errors, addition and/or deletions may occur. If there is any question about this report, please contact Client Services. PATIENT NAME: JENSEN BEE PATHOLOGY DATE OF : 50 REPORT #: [id number] PHYSICIAN: CHARITY PATHOLOGY PCP: RASTA JOHNSON REPORT IS CONFIDENTIAL AND NOT TO BE RELEASED WITHOUT AUTHORIZATION [facility] [address] [place], [place] [address] Signed ADDITIONAL NOTES: Immunohistochemical and/or in situ hybridization studies if performed in this case included appropriate positive controls that reacted as expected. This test was developed and its performance characteristics determined by [facility]. It has not been cleared or approved by the U.S. Food and Drug Administration. The FDA has determined that such clearance or approval is not necessary. This test is used for clinical purposes. It should not be regarded as investigational or for research. [facility] is certified under the Clinical Laboratory Improvement Amendments of 1988 (CLIA) as qualified to perform high complexity clinical laboratory testing. PERFORMING LABORATORY: Technical component was performed by [facility], [address] [place] [address] (CLIA# [id number]). Professional interpretation was performed by [facility] - [facility][Note 3], [address] [place] [address] (CLIA#: [id number]). Diagnostician: Carlos Lemon MD Pathologist Electronically Signed 09/02/2024 Copies: ~ PATIENT NAME: JENSEN BEE PATHOLOGY DATE OF : 50 REPORT #: [id number] PHYSICIAN: CHARITY RAJAN PCP: RASTA JOHNSON REPORT IS CONFIDENTIAL AND NOT TO BE RELEASED WITHOUT AUTHORIZATION
== END 2024-08-31 11:05 | disposition home or self-care (01) ==
LOC: DS 05:50 → MS 12:45 → DS 08-31 11:05
PROVIDERS: ATTEND Colon & Rectal Surgery
PROC: 0DBL8ZZ Excision of Transverse Colon, Via Natural or Artificial Opening Endoscopic (ICD-10-PCS; 2024-08-29)
PROC: 0DBN8ZZ Excision of Sigmoid Colon, Via Natural or Artificial Opening Endoscopic (ICD-10-PCS; 2024-08-29)
PROC: 0DBH8ZZ Excision of Cecum, Via Natural or Artificial Opening Endoscopic (ICD-10-PCS; principal; 2024-08-29 08:45)
DX: Z12.11 Encounter for screening for malignant neoplasm of colon (principal); D12.0 Benign neoplasm of cecum; K63.5 Polyp of colon; K51.40 Inflammatory polyps of colon without complications; K63.89 Other specified diseases of intestine; J95.89 Other postprocedural complications and disorders of respiratory system, not elsewhere classified; R09.02 Hypoxemia; J98.11 Atelectasis; I10 Essential (primary) hypertension; E78.5 Hyperlipidemia, unspecified; G47.33 Obstructive sleep apnea (adult) (pediatric); K21.9 Gastro-esophageal reflux disease without esophagitis; N40.0 Benign prostatic hyperplasia without lower urinary tract symptoms; E66.9 Obesity, unspecified; Z68.32 Body mass index [BMI] 32.0-32.9, adult; Z86.0102 Personal history of hyperplastic colon polyps; Z79.82 Long term (current) use of aspirin; Z79.899 Other long term (current) drug therapy; Z88.8 Allergy status to other drugs, medicaments and biological substances
CPT/HCPCS: 00811; 36415; 71045; 80048; 80053; 83735; 83880; 84100; 85025; 85379; 88305; 93005; 93010; 94762; 96360; 96361; 96365; 96366; 96367; 96374; 96375; 96376; A9270; G0378; J0690; J0780; J1940; J2003; J2405; J2704; J3010; J3475; J3480; J7121

== ENCOUNTER 2024-09-18 08:30 | Day surgery (SDC) | payer MEDICARE, OTHER ==
[~2024-09-18] VITALS: Ht 177.8 cm; Wt 103.6 kg
[~2024-09-18 08:30] MED LIST changes: +ALBUTEROL1.25 MG/3 INH; +AMOX TR-K CLV1 EAC1 PO; +CEFAZOLIN SODIUM 2 GM/20 ML SYR IV SCH; +HEParin SOD (PORCINE) 5,000 UNIT/ML SDV SUB-Q SCH; +IBLOOD GLUCOSE TEST STRIP 1 EA TEST VI PRN; +LACTATED RINGER'S 1,000 ML IV SCH; +LIDOCAINE HCL 1% 5 ML SDV INJ ONE
[2024-09-18 09:23] VITALS: BP 141/90
[2024-09-18] MEDS ORDERED: propofoL 200 MG/20 ML VIAL ONE (10:28)
[2024-09-18] MEDS ORDERED: BUPIVACAINE 0.75% IN DEXTROSE 2 ML AMP ONE (10:28)
[2024-09-18] MEDS ORDERED: fentaNYL citrate 100 MCG/2 ML VIAL ONE (10:28)
[2024-09-18] MEDS ORDERED: MIDAZOLAM HCL 2 MG/2 ML VIAL ONE (10:34)
[2024-09-18] MEDS ORDERED: KETAMINE in NS 50 MG/5 ML SYR ONE (11:19)
[2024-09-18] MEDS ORDERED: ePHEDrine sulfate 50 MG/ML AMP ONE (11:51)
[2024-09-18] MEDS ORDERED: HYDROmorphone HCL 1 MG/ML SYR IV PRN (12:00)
[2024-09-18] MEDS ORDERED: HYDROCODONE/ACETA 5/325 TAB PO PRN (12:00)
[2024-09-18] MEDS ORDERED: PROCHLORPERAZINE EDISYLATE 10 MG/2 ML VIAL IV PRN (12:00)
[2024-09-18] MEDS ORDERED: ondansetron HCL 4 MG/2 ML VIAL IV ONE (12:00)
[2024-09-18] MEDS ORDERED: ondansetron HCL 4 MG/2 ML VIAL IV PRN ×2 (12:00→15:00)
[2024-09-18] MEDS ORDERED: NALOXONE HCL 0.4 MG SYR IV PRN ×2 (12:00→15:00)
--- NOTE | 2024-09-18 12:16 | NUR ---
09/18/24 1216 Jemima Honeycutt 1148- PT ARRIVES TO PACU AROUSABLE TO VOICE. PT ABLE TO ANSWER SIMPLE QUESTIONS. HAS A HARD TIME KEEPING HIS EYES OPEN. RESP EVEN AND UNLABORED. OXYGEN SAT MID TO HIGH 90'S ON RA. PT'S BP 79/57. [employer] AT THE BEDSIDE. BP RETAKEN. BP 70/55. [employer] GETTING MEDICATION TO ASSIST WITH BP. 1150- PT REPORTS HE IS FEELING DIZZY. THE HEAD OF THE BED DECREASED. 1152- [employer]IVER AT THE BEDSIDE TO GIVE MEDICATIONS. PT REMAINS AWAKE ON AND OFF. PT REPORTS NO PAIN OR NAUSEA. STATES HIS DIZZINESS IS BETTER LAYING DOWN, BUT WANTS TO SIT UP WHEN HIS BP IS BETTER.
[2024-09-18 12:42] VITALS: BP 139/82
--- NOTE | 2024-09-18 12:56 | NUR ---
1240-PT BACK TO ROOM 3 FORM PACU ON 2L VIA NC. RECEIVED REPORT FROM LUIS ALFREDO VELA. PT IS AWAKE. RESP EVEN AND UNLABORED. PT IS VOMITING ON ARRIVAL TO ROOM. PT HAS EMESIS BAG AND COOL CLOTH ON HEAD. PT HAS ICE PACK IN PLACE ON ABDOMEN. 1245-PT NO LONGER IS VOMITING. PT HAS ICE CHIPS. PT ON 2L VIA NC. PT ON CONTINUOUS PULSE OX. NO OTHER NEEDS AT THIS TIME. CALL LIGHT WITHIN REACH.
--- NOTE | 2024-09-18 13:15 | NUR ---
TIFFANIE 1315-PT LAYING IN BED AWAKE. O2 TITRATED OFF. O2 SAT AT 99% ON RA. PT WOULD LIKE TO USE HIS CPAP NOW. TIFFANIE 1315-PT PUT ON CPAP. O2 SAT AT 98%. PT ON CONTINUOUS PULSE OX. NO OTHER NEEDS AT THIS TIME. CALL LIGHT WITHIN REACH.
[2024-09-18 13:35] VITALS: BP 130/79
--- NOTE | 2024-09-18 13:36 | NUR ---
PT REPORTS PAIN 2/10 AND TOLERABLE. PT DENIES NAUSEA. PT RESTING WITH CPAP IN PLACE. CALL LIGHT WITHIN REACH.
--- NOTE | 2024-09-18 14:15 | NUR ---
LE 1405-PT IS AWAKE TALKING TO FAMILY. PROVIDED PT WITH JELLO AND MORE ICE CHIPS. SPINAL LEVEL IS AT L-2. NO OTHER NEEDS AT THIS TIME. CALL LIGHT WITHIN REACH.
[2024-09-18 14:46] VITALS: BP 145/93
[2024-09-18] MEDS ORDERED: droPERidol 5 MG/2 ML VIAL IV PRN (15:00)
[2024-09-18] MEDS ORDERED: KETOROLAC TROMETHAMINE 30 MG/ML VIAL IV ONE (15:00)
[2024-09-18] MEDS ORDERED: MEPERIDINE HCL 25 MG/1 ML VIAL IV PRN (15:00)
[2024-09-18] MEDS ORDERED: fentaNYL citrate 50 MCG/ML SDV IV PRN (15:00)
--- NOTE | 2024-09-18 15:18 | NUR ---
LE 1446-PT LAYING IN BED AWAKE. RESP EVEN AND UNLABORED. DENIES NAUSEA. RATES PAIN 09/02. SPINAL HAS RESOLVED. ICE PACK IN PLACE. NO OTHER NEEDS AT THIS TIME. CALL LIGHT WITHIN REACH.
--- NOTE | 2024-09-18 15:20 | NUR ---
1510-PT UP TO BEDSIDE. DENIES NAUSA OR DIZZINESS. 1512-PT AMBULATES TO RESTROOM WITH 2 RN ASSIST. GAIT UNSTEADY BUT TOLERATED WELL. PT UNABLE TO VOID. 1518-PT AMBULATES BACK TO ROOM WITH 2 RN ASSIST. GAIT STEADY, TOLERATED WELL. PT SITTING AT BEDSIDE. PROVIDED PT WITH COFFEE AND ICE WATER. NO OTHER NEEDS AT THIS TIME. CALL LIGHT WITHIN REACH.
--- NOTE | 2024-09-18 16:07 | NUR ---
LE 1600-PT ABMULATES TO THE RESTROOM. GAIT STEADY AND TOLERATED WELL. PT VOIDS 125ML OF YELLOW URINE. LE 1605-PT BACK TO ROOM. PT TO GET DRESSED. CALL LIGHT WITHIN REACH.
[2024-09-18 16:17] VITALS: BP 153/96
--- NOTE | 2024-09-18 16:29 | NUR ---
1620-PROVIDED PT WITH DISCHARGE INSTRUCTIONS. WENT OVER POSTOP MEDICATIONS. ALL QUESTIONS ANSWERED. 1625-PT AMBULATES TO WHEELCHAIR AND RIDE PROVIDED TO FRONT OF HOSPITAL WHERE FAMILY WAS WAITING WITH THE CAR.
--- NOTE | 2024-09-18 23:09 | OR ---
[facility] [address] [place], [place] [address] Signed DATE OF OPERATION: 09/18/2024 SURGEON: Sergo Palma MD PREOPERATIVE DIAGNOSIS: Reducible umbilical hernia (10 mm). POSTOPERATIVE DIAGNOSIS: Reducible umbilical hernia (10 mm). PROCEDURE: Primary repair of umbilical hernia with 4.3 cm intraabdominal Ventralex mesh. ESTIMATED BLOOD LOSS: None. INDICATIONS: Jensen is a 74-year-old obese gentleman, who still has good functional status. He lives [place] hours [place] out [place] the country in a [place] town called [place], [place]. Unfortunately, his had in the last year. He still lives by himself. He does have a stepdaughter which lives with him about half the year. He said he can get help from the [employer] for various appointments when he needs a ride in different places. Otherwise, he can drive himself. He said he has had trouble with an umbilical hernia. He said it is not very large. He said it is reducible. It bothers him with his activities of daily living. He went to his primary care provider. They asked him to see me with respect to the above. He reminded me that I repaired his left inguinal hernia back in 2019. Most recently I also helped him with a colonoscopy. He did well in that regard. In the office I had given him a pamphlet on hernias. We circled the sections relevant to him. He understands this will be a day surgery. We reviewed primary suture repair versus mesh repair. There is risk including, but not limited to bleeding, infection, scarring, change in contour of the skin, damage to bowel, infection of mesh requiring removal, recurrent hernias and chronic pain. He had expressed understanding and wished to proceed. We know from prior surgeries that he has a very difficult airway. He has a very full round face, very large tongue. We actually used the oral airway during the colonoscopy, it took the attention of our anesthesia provider the whole case. We went back and looked at previous anesthesia notes and he has been a difficult intubation and even chipped some of his teeth. He now has caps on his front teeth. He had expressed understanding and wished to proceed. DESCRIPTION OF PROCEDURE: Electronically Signed By: SERGO PALMA MD 09/18/24 2309 PATIENT NAME: JENSEN BEE OPERATIVE REPORT DATE OF : 50 REPORT #: [id number] PHYSICIAN: SERGO PALMA MD PCP: RASTA JOHNSON REPORT IS CONFIDENTIAL AND NOT TO BE RELEASED WITHOUT AUTHORIZATION [facility] [address] [place], [place] [address] Signed Jensen was taken into our operating room. We had him sit on the edge of the table. Our nurse frit coater gave him a spinal anesthetic. He has been off his aspirin for multiple days. After this we placed him in the supine position. He was given monitored anesthesia care with the help of propofol from our nurse frit coater. He was not given any heparin or Lovenox. We did use SCDs. He was prepped and draped in the usual sterile fashion. We checked the skin around his umbilicus and it was quite numb. We used a standard infraumbilical transverse incision, went down around the umbilicus bluntly and with the cautery. We his short hernia sac from the fascial defect, which is about 10 mm. We reduced the fat back inside the abdomen. The hernia sac was excised and passed off the field. We chose our 4.3 cm round Ventralex mesh and we placed it in the abdomen, brought it up, flushed against the posterior abdominal wall. We held in place with two interrupted [id number] Prolene sutures. The suture went through the center of the mesh at the base of the tab to help hold it in place. The tab was cut flushed with the abdominal wall and discarded. We then brought the umbilical skin back down the midline fascia with an interrupted 2-0 PDS suture. Wound was irrigated and suctioned out until clear. No need to add any local anesthetic in this situation. We brought the dermis back together with interrupted 3-0 subcuticular Monocryl sutures. The skin edges were reapproximated with a running 5-0 fast absorbing plain gut suture. Dry gauze and tape were then applied. Jensen was then transferred over to his hospital bed and taken into recovery room in stable condition. Sergo Palma MD ALB/MODL /[id number] cc: ELZBIETA Salguero MD Copies: SERGO PALMA MD ~ Electronically Signed By: SERGO PALMA MD 09/18/24 2309 PATIENT NAME: JENSEN BEE OPERATIVE REPORT DATE OF : 50 REPORT #: [id number] PHYSICIAN: SERGO PALMA MD PCP: RASTA JOHNSON REPORT IS CONFIDENTIAL AND NOT TO BE RELEASED WITHOUT AUTHORIZATION
--- NOTE | 2024-09-19 22:29 | EKG ---
[facility] [address] [facility] [place] [address] Signed Normal sinus rhythm Right bundle branch block Abnormal ECG No previous ECGs available Confirmed by Florence Nicole MD () on 09/19/2024 10:29:32 PM Electronically Signed By: FLORENCE NICOLE MD 09/19/242228 PATIENT NAME: JENSEN BEE Electrocardiogram DATE OF : 50 PHYSICIAN: FLORENCE NICOLE MD REPORT #: [id number] REPORT IS CONFIDENTIAL AND NOT TO BE RELEASED WITHOUT AUTHORIZATION
== END 2024-09-18 16:25 | disposition home or self-care (01) ==
LOC: DS 08:30
PROVIDERS: ATTEND Colon & Rectal Surgery
PROC: 0WUF0JZ Supplement Abdominal Wall with Synthetic Substitute, Open Approach (ICD-10-PCS; principal; 2024-09-18 10:25)
DX: K42.9 Umbilical hernia without obstruction or gangrene (principal); G47.30 Sleep apnea, unspecified; E66.9 Obesity, unspecified; Z68.33 Body mass index [BMI] 33.0-33.9, adult; Z88.8 Allergy status to other drugs, medicaments and biological substances; Z79.82 Long term (current) use of aspirin; Z79.899 Other long term (current) drug therapy
CPT/HCPCS: 00750; 93005; 93010; C1781; J0690; J2250; J2405; J2704; J3010; J3490

== ENCOUNTER 2025-03-31 05:20 | Inpatient (IN) | payer MEDICARE, OTHER ==
[~2025-03-31] VITALS: Ht 177.8 cm; Wt 107.0 kg
[2025-03-31] VITALS (8 sets, daily range): BP systolic 118–153; BP diastolic 67–91
[~2025-03-31 05:20] MED LIST changes: -CEFAZOLIN SODIUM 2 GM/20 ML SYR IV SCH; -HEParin SOD (PORCINE) 5,000 UNIT/ML SDV SUB-Q SCH; -IBLOOD GLUCOSE TEST STRIP 1 EA TEST VI PRN; -LIDOCAINE HCL 1% 5 ML SDV INJ ONE; +MYSOLINE50 MG PO
[2025-03-31] MEDS ORDERED: LIDOCAINE HCL 2% 5 ML SDV ONE (06:15)
[2025-03-31] MEDS ORDERED: Ropivacaine HCl 0.5% 30 ML VIAL ONE (06:26)
[2025-03-31] MEDS ORDERED: OXYCODONE HCL 5 MG TAB PO SCH (07:00)
[2025-03-31] MEDS ORDERED: PANTOPRAZOLE SODIUM 40 MG TABEC PO SCH (07:00)
[2025-03-31] MEDS ORDERED: GABAPENTIN 600 MG TAB PO SCH (07:00)
[2025-03-31] MEDS ORDERED: INTRA-ARTICULAR ANALGESIC INJECTION XX SCH (07:00)
[2025-03-31] MEDS ORDERED: ROPIVACAINE IN 0.9% SOD CHL/PF 545 ML ELS.PMP.HR IRRIGATION SCH (07:00)
[2025-03-31] MEDS ORDERED: CEFAZOLIN SODIUM 2 GM in SODIUM CHLORIDE 0.9% 100 ML IV SCH ×2 (07:00→15:00)
[2025-03-31] MEDS ORDERED: TRANEXAMIC ACID IN NACL,ISO-OS 1,000 MG/100 ML PIGGYBACK IV SCH (07:00)
[2025-03-31] MEDS ORDERED: OXYCODONE HCL 5 MG TAB PO PRN (07:00)
[2025-03-31] MEDS ORDERED: KETOROLAC TROMETHAMINE 30 MG/ML VIAL IV PRN (07:00)
[2025-03-31] MEDS ORDERED: IBLOOD GLUCOSE TEST STRIP 1 EA TEST VI PRN ×2 (07:00→08:15)
[2025-03-31] MEDS ORDERED: LIDOCAINE HCL 1% 5 ML SDV INJ ONE (07:00)
[2025-03-31 07:16] LABS: BASOPHILS 0.7 % (0.2-1.2); EOSINOPHILS 1.1 % (0.8-7.0); LYMPHOCYTES 29.1 % (21.8-53.1); MCH 32.9 PG (25.7-32.2); MCHC 34.2 g/dL (32.3-36.5); MCV 96.3 fL (79.0-92.2); MONOCYTES 12.5 % (5.3-12.2); NEUTROPHILS 56.2 % (34.0-67.9); RBC 5.38 M/uL (4.63-6.08)
[2025-03-31 07:34] LABS: ALT (SGPT) 37.0 U/L (14-59); AST (SGOT) 30.0 U/L (15-37); GLOMERULAR FILTRATION RATE,EST 92.0 mL/min (>60); PROTEIN, TOTAL 7.1 g/dL (6.4-8.2); UREA NITROGEN 11.0 mg/dL (7-18)
[2025-03-31] MEDS ORDERED: fentaNYL citrate 100 MCG/2 ML VIAL ONE (07:46)
[2025-03-31] MEDS ORDERED: TRANEXAMIC ACID 1,000 MG/10 ML AMP ONE (07:56)
[2025-03-31] MEDS ORDERED: fentaNYL citrate 50 MCG/ML SDV IV PRN (08:15)
[2025-03-31] MEDS ORDERED: NALOXONE HCL 0.4 MG SYR IV PRN (08:15)
[2025-03-31] MEDS ORDERED: HYDROmorphone HCL 1 MG/ML SYR IV PRN (08:15)
[2025-03-31] MEDS ORDERED: ACETAMINOPHEN 1,000 MG/100 ML VIAL ONE (08:25)
[2025-03-31] MEDS ORDERED: PHENYLEPHRINE HCL IN 0.9% NACL 1 MG/10 ML SYR ONE (08:30)
[2025-03-31] MEDS ORDERED: ASPIRIN 325 MG TAB PO SCH (09:00)
[2025-03-31] MEDS ORDERED: KETOROLAC TROMETHAMINE 30 MG/ML VIAL ONE (09:01)
--- NOTE | 2025-03-31 09:08 | NUR ---
03/31/25 0908 Lety Christensen LE 0902: PT ARRIVES TO PACU NON AROUSAL/NON REACTIVE. REPORT RECEIVED FROM DETENTION ATTENDANT AND BEAUTY SCHOOL INSTRUCTOR. LE 0905: PT CONTINUES TO HAVE ORAL AIRWAY IN PLACE, NO AROUSAL.
[2025-03-31] MEDS ORDERED: TRANEXAMIC ACID IN NACL,ISO-OS 1,000 MG/100 ML PIGGYBACK IV ONE (10:00)
--- NOTE | 2025-03-31 10:37 | NUR ---
PT TO FLOOR WITH MIRIAN ESPINOZA. PT AWAKE AND TALKATIVE. DENIES PAIN. CAN MOVE LEG ALL AROUND. CMS INTACT. CRYO,TEDS,FOOTPUMPS IN PLACE. CALL LIGHT IN REACH. GIVEN ICE WATER. ORDERED LUNCH. DRESSING CDI.
--- NOTE | 2025-03-31 11:49 | NUR ---
PT SITTING U IN CHAIR EATING LUNCH. WORKED WITH SPECIAL EDUCATION PROFESSIONAL. DENIES PAIN. VS STABLE.
--- NOTE | 2025-03-31 12:41 | NUR ---
ROUNDED ON PT. REMAINS SITTING IN CHAIR EATING LUNCH. DENIES PAIN. CRYO IN PLACE. PT DOING FOOT PUMPS WHILE IN CHAIR.
--- NOTE | 2025-03-31 13:00 | NUR ---
In with pt to assess IV and ask pt if he has voided yet. Pt is sitting up in his chair, BLE elevated. IV flushes well, no pain, no redness, no swelling noted. Pt states he has not voided yet but feels like he might have to soon. Updated primary RN.
--- NOTE | 2025-03-31 13:17 | OR ---
[facility] [address] [facility] [place] [address] Signed DATE OF OPERATION: 03/31/2025 SURGEON: Mariam To MD PREOPERATIVE DIAGNOSIS: Severe degenerative joint disease of the right knee. POSTOPERATIVE DIAGNOSIS: Severe degenerative joint disease of the right knee. PROCEDURE PERFORMED: Right total knee arthroplasty. KITCHEN BATH DESIGNER: None. ANESTHESIA: Spinal. BLOOD LOSS: 200 mL. TOURNIQUET TIME: Zero. IMPLANTS: Karishma Triathlon size 5, 10 mm polyethylene, and a 35 mm patella. BRIEF HISTORY: Jensen is a 74-year-old gentleman with progressive worsening of osteoarthritis in his right knee. He had undergone left total knee with good results and wished to proceed with the right. Risks, benefits, and alternatives were discussed. He understood and wished to proceed. DESCRIPTION OF PROCEDURE: Once consent was obtained, he was taken to the operating room after adequate anesthesia. He was placed on the OR table. A hip bump was placed under the right hip. The leg was then prepped and draped in a standard sterile fashion. The knee was approached through a standard anterior midline incision, carried through skin and subcutaneous tissue. The skin flaps were developed medially and laterally. A low mid vastus arthrotomy was Electronically Signed By: MARIAM TO MD 03/31/25 1317 PATIENT NAME: JENSEN BEE OPERATIVE REPORT DATE OF : 50 REPORT #: [id number] PHYSICIAN: MARIAM TO MD PCP: RASTA JOHNSON REPORT IS CONFIDENTIAL AND NOT TO BE RELEASED WITHOUT AUTHORIZATION [facility] [address] [place], [place] [address] Signed performed and the infrapatellar fat pad was excised. The MCL was elevated as a subperiosteal sleeve around the posteromedial corner. The anterior horns of the menisci were transected as we went. The ACL was transected. The navigation computer arrays were then placed in the distal femur and the proximal tibia. The leg was registered with the computer, followed by the fine anatomic points of the knee. The four ligamentous poses were then undertaken. Slight adjustments were made to the position of the prosthesis to balance the knee. The robot was then brought in. The four straight cuts and two angled cuts were made with care taken to protect the patellar tendon and MCL. The bony remnants were removed, as were any remaining osteophytes. The posterior osteophytes were removed off the femur and a slight posterior release was performed. The trials were then positioned and the knee was taken from 0 to 110 degrees of flexion with good stability throughout. The patella was cut, sized, and drilled for a 35 mm patella. The distal femoral drill holes were completed. The proximal tibia was finished using the keel punch and the four drill holes. His bone quality was excellent throughout. The prosthesis was then obtained. The tibia was impacted until it was seated and flushed. The polyethylene was snapped into position and the femur was impacted. The knee was extended and loaded. The patella was then clamped into position until again it was seated and flushed with the bone cut. The patellar tracking was found to be good. The knee was then washed out with one bottle of Surgiphor, followed by normal saline. The periarticular soft tissues were injected with 100 mL of ropivacaine and Toradol mixture. The On-Q pain pump was percutaneously placed into the adductor canal from the suprapatellar pouch. The arthrotomy was then closed using a combination of #2 FiberWire and #2 Stratafix, subcutaneous tissue with 0 Stratafix, and skin with isauro. The wounds were dressed with Acticoat-7 dressing, ABDs, and Johnny wrap. He tolerated the procedure well. All sponge, needle, and instrument counts were correct. Mariam To MD BA/MODL /[id number] Electronically Signed By: MARIAM TO MD 03/31/25 1317 PATIENT NAME: JENSEN BEE OPERATIVE REPORT DATE OF : 50 REPORT #: [id number] PHYSICIAN: MARIAM TO MD PCP: RASTA JOHNSON REPORT IS CONFIDENTIAL AND NOT TO BE RELEASED WITHOUT AUTHORIZATION [address] [address] Signed Copies: ~ Electronically Signed By: MARIAM TO MD 03/31/25 1317 PATIENT NAME: JENSEN BEE OPERATIVE REPORT DATE OF : 50 REPORT #: [id number] PHYSICIAN: MARIAM TO MD PCP: RASTA JOHNSON REPORT IS CONFIDENTIAL AND NOT TO BE RELEASED WITHOUT AUTHORIZATION
--- NOTE | 2025-03-31 13:18 | NUR ---
INTO SEE PATIENT. PATIENT PERSONAL INFORMATION REVIEWED. PATIENT LIVES ALONE IN [place]. HAS ONE STEP INTO THE HOME. DOES NOT USE A WALKER, CANE OR WHEELCHAIR AT BASELINE. FWW IN ROOM FOR POST OP. CPAP THROUGH [employer]. PATIENT DRIVES. DENIES ANY DIFFCULTY PAYING UTLITIES OR OBTAINING FOOD. PATIENT REQUEST SWING BED AT [facility].
--- NOTE | 2025-03-31 14:10 | NUR ---
PT SITTING IN CHAIR RESTING WITH EYES CLOSED. CALL LIGHT ON TABLE IN FRONT OF HIM.
--- NOTE | 2025-03-31 14:39 | NUR ---
HOURLY ROUNDING PATIENT SITTING IN RECLINER CHAIR. NO REQUEST FROM PATIENT AT THIS TIME. CALL LIGHT HAS BEEN PLACED WITHIN REACH
[2025-03-31] MEDS ORDERED: ACETAMINOPHEN 500 MG TAB PO SCH (15:00)
[2025-03-31] MEDS ORDERED: GABAPENTIN 300 MG CAP PO SCH (15:00)
--- NOTE | 2025-03-31 15:18 | NUR ---
UR CLINICAL REVIEW: 2 MN CASSY, MEETS INPT FOR RIGHT KNEE ARTHROPLASTY CT POSITIVE FOR SEVERE DEGENERATIVE JOINT, INJECTIONS PREVIOUSLY INEFFECTIVE LIMITED ROM DUE TO PAIN, PT/OT RECOMMEND FURTHER TREATMENT AT SNF/TRANSITIONAL CARE POST-OPERATIVELY, IV ANTIBIOTICS, IV ANALGESICS ORDER. MEDICARE INPT 03/31/2025 @ 0905 ORDER MATCHES REG PLAN TO DC TO [facility] FOR TRANSITIONAL CARE. DC 04/02/2025
--- NOTE | 2025-03-31 15:32 | NUR ---
MED REC COMPLETE
[2025-03-31] MEDS ORDERED: LIDOCAINE 2% VISCOUS 6 ML SYR ONE (16:01)
--- NOTE | 2025-03-31 16:24 | NUR ---
AFTER MULTIPLE ATTEMPTS TO VOID BY STANDING, RUNNING WATER ETC. A BARBOZA WAS PLACED WO DIFFICULTY. PT TOLERATED WELL AND 650ML LIGHT YELLOW URINE RETURNED.
--- NOTE | 2025-03-31 18:17 | NUR ---
HOURLY ROUNDING.PATIENT IS VISITING WITH HIS FRIEND. NO REQUEST FROM PATIENT AT THIS TIME
--- NOTE | 2025-03-31 18:38 | NUR ---
PT IN BED TALKING WITH FRIEND WHOM IS ALSO A NURSE. BROUGHT HIM A FROSTY. DENIES PAIN. REFILLED ICE CONTAINER IN CRYO. DRESSING CDI. ROLLED TOWEL UNDER HEELS.
[2025-03-31] MEDS ORDERED: LIDOCAINE 2% VISCOUS 6 ML SYR TOP ONE (18:45)
--- NOTE | 2025-03-31 19:55 | NUR ---
PT CALLED TO USE RESTROOM. HELPED PT TO BSC AND BACK TO BED, NO BM. CRYO, SCD'S, AND NEW STAT LOCK PLACED BACK ON PT WITH CALL LIGHT IN REACH.
[2025-03-31] MEDS ORDERED: TRANEXAMIC ACID 650 MG TABLET PO SCH (21:00)
[2025-03-31] MEDS ORDERED: SENNOSIDES 1 TAB PO SCH (21:00)
--- NOTE | 2025-03-31 21:14 | NUR ---
Pt awake, using home CPAP, lungs faint crackles at bases. IS encouraged. abd large firms MALOU DIAZ "several days ago" stated, unsure of date. RKnee with cryocuff in place. dressing CDI. foot pumps in place, bilat, elevated with rolled up towels under ankles, azam hose in place. Pleasnt and cooperative, f/c in place, draining clear urine. SL RFA. Medicated with scheduled Tylenol and Oxycodone 5mg po
--- NOTE | 2025-03-31 22:42 | NUR ---
PT CPOX GOING OFF, PT USING HOME CPAP. DESATTING TO 79%. RT NOTIFIED. WILL HAVE O2 BLEEDING IN TO CPAP. PT DROWZY, C/O 'HAVING HAD TOO MANY PILLS, CANT GO BACK TO SLEEP AND FEELS NAUSEATED. DR BLANCA NOTIFIED VIA PHONE AND NEW ORDER FOR ZOFRAN IV 4MG Q6HPRN OBTAINED. PT SITTING UP IN BED.
--- NOTE | 2025-03-31 23:10 | NUR ---
MEDICATED WITH ZOFRAN 4MG IV AT THIS TIME. RESTING, AWAKENS EASILY. USING HOME CPAP WITH O2 BLEEDING IN
[2025-04-01] VITALS (9 sets, daily range): BP systolic 98–142; BP diastolic 50–96
--- NOTE | 2025-04-01 01:16 | NUR ---
RESTING, EYES CLOSED, USING CPAP, F/C PATENT. NO FURTHER S/SX OF C/O N/V OR PAIN. CRYOCUFF TO RK, SCDS FOOT SCDS, ROLLED TOWELS UNDER ANKLES. NO S/SX DISTRESS AT THIS TIME.
--- NOTE | 2025-04-01 01:39 | NUR ---
PT AWAKE IN BED, CPAP IN PLACE. VITALS TAKEN, BARBOZA EMPTIED, WATER REFILLED, AND CALL LIGHT IN REACH.
--- NOTE | 2025-04-01 03:32 | NUR ---
AWAKE, NO C/O PAIN. USING HOME CPAP WITH O2 BLEEDING IN. CRYOCUFF TO R KNEE IN PLACE. SCDS TEDHOSE IN PLACE. PLEASANT AND COOPERAIVE, NO FURTHER C/O N/V. PLAYING WITH PHONE
--- NOTE | 2025-04-01 05:49 | NUR ---
PT IN BED ON PHONE. VITALS DONE, BARBOZA EMPTIED. CALL LIGHT IN REACH.
--- NOTE | 2025-04-01 07:42 | NUR ---
REPORT RECEIVED FROM LEONARDO VELA. PATIENT IN BED, DENIES CONCERNS. CALL LIGHT AND PERSONAL BELONGINGS IN REACH OF PATIENT
[2025-04-01] MEDS ORDERED: CELECOXIB 200 MG CAP PO SCH (08:00)
[2025-04-01] MEDS ORDERED: DOCUSATE SODIUM 100 MG CAP PO ONE (08:00)
--- NOTE | 2025-04-01 08:25 | NUR ---
PATIENT IN BED, WITH BREAKFAST AT BEDSIE. SCHEDULED MEDICATIONS, SHIFT SCREENING, AND ASSESMENT COMPLETED. PATIENT DENIES CONCERNS. CALL LIGHT AND PERSONAL BELONGINGS IN REACH OF PATIENT.
[2025-04-01] MEDS ORDERED: DOXAZOSIN MESYLATE 4 MG TAB PO SCH (09:00)
--- NOTE | 2025-04-01 09:10 | NUR ---
hourly rounding patient laying in bed, no request. patient appears in a good mood. call light has been placed within reach
--- NOTE | 2025-04-01 10:00 | NUR ---
Spoke with Randal. He has PT stop as he has questions for Case Management. Pt requests I schedule the [facility] van to pick him up to go to [facility] swing bed. We then discussed I can't schedule transport until I know he is going for sure. I let him know he needs a 3 night IP stay and this will not be completed until Th. He lets me know his PCP is a big deal at [facility] and she said he will go. I let him know, Dr. To will be writing his orders. I have no doubt they will accept him, but we need to check with Dr. To and confirm the date. PT requested they resume his therapy and I let him know I will fu with him tomorrow.
--- NOTE | 2025-04-01 10:25 | NUR ---
PATIENT UP AMBULATING WITH PT IN ROOM.
--- NOTE | 2025-04-01 10:37 | NUR ---
PATIENT IN CHAIR. PATIENT EDUCATION PROVIDED ON IS USE. BARBOZA CATHETER REMOVED PER ORDER, WNL. 10 ML STERILE WATER REMOVED FROM BARBOZA [place]. TIP INTACT. PATIENT TOLERATED WELL. CALL LIGHT AND PERSONAL BELONGINGS IN REACH OF PATIENT. PATIENT DENIES CONCERNS.
--- NOTE | 2025-04-01 11:20 | NUR ---
VISITED DURING SPIRITUAL CARE ROUNDS. PT APPEARED TO BE SLEEPING. DID NOT DISTURB. PROVIDED PRAYER.
--- NOTE | 2025-04-01 11:49 | NUR ---
PATIENT IN CHAIR. CALL LIGHT AND PERSONAL BELONGINGS IN REACH OF PATIENT.
--- NOTE | 2025-04-01 12:37 | NUR ---
HOURLY ROUNDING. PATIENT DOIND ROM WITH HIS RIGHT LEG.
--- NOTE | 2025-04-01 13:04 | NUR ---
PATIENT IN CHAIR. PATIENT REPORTS 3/10 PAIN AND REQUESTS PRN PAIN MEDICATION, ADMINISTERED PER PATIENT REQUEST. CALL LIGHT AND PERSONAL BELONGINGS IN REACH OF PATIENT. PATIENT DENIES FURTHER CONCERNS.
--- NOTE | 2025-04-01 14:13 | NUR ---
Left a message for Dr. To to check if pt will dc to [facility] on . He returned my call and stated the plan is to dc on .
--- NOTE | 2025-04-01 14:18 | NUR ---
Called and left a message with T requesting a return call to schedule transport for Randal on .
--- NOTE | 2025-04-01 14:26 | NUR ---
PATIENT IN BED. CRYO CUFF, IVAN HOSE, HEEL PROTECTION, AND VENOUS FOOT PUMPS IN PLACE. CALL LIGHT AND PERSONAL BELONGINGS IN REACH OF PATIENT. PATEINT DENIES CONCERNS AT THIS TIME.
--- NOTE | 2025-04-01 15:43 | NUR ---
PATIENT IN BED, SCHEDULED MEDICATIONS ADMINISTERED. CALL LIGHT AND PERSONAL BELONGINGS IN REACH OF PATIENT. PATIENT DENIES CONCERNS.
--- NOTE | 2025-04-01 16:31 | NUR ---
Called T and was able to reach [facility]. Pt is scheduled for at 12N to transport to [facility] to their Swing Bed program.
--- NOTE | 2025-04-01 17:36 | NUR ---
HOURLY ROUNDING PATIENT LAYING IN BED, SAYS IT VASQUEZ TO URNINATE. 50ML WAS DOC ON I AND O'S. NO REQUEST FROM PATIENT AT THIS TIME. CALL LIGHT HAS BEEN PLACED WITHIN REACH
--- NOTE | 2025-04-01 17:53 | NUR ---
PATIENT IN BED, SCHEDULED MEDICATIONS ADMINISTERED
--- NOTE | 2025-04-01 18:24 | NUR ---
PATIENT WITH 150 ML URINE OUTPUT SINCE BARBOZA CATHETER HAS BEEN REMOVED. BLADDER SCAN WITH 168 ML. PATIENT WITH PO INTAKE 647 ML SINCE CATHETER REMOVED. CALL MD AND REVIEWED THE ABOVE. MD VERBALIZED UNDERSTANDING AND STATES, "NO IV FLUIDS, ENCOURAGE ORAL INTAKE". NO FURTHER ORDERS AT THIS TIME.
--- NOTE | 2025-04-01 19:30 | NUR ---
REPORT RECEIVED FROM DAY SHIFT RN. PATIENT RESTING IN CHAIR WITH EYES CLOSED. RESPIRATIONS EVEN AND UNLABORED. CALL LIGHT IN REACH.
--- NOTE | 2025-04-01 20:30 | NUR ---
PATIENT CALLED TO USE THE RESTROOM. 1PA USING WALKER FROM CHAIR TO BATHROOM THEN TO BED. GAIT BELT WAS USED FOR SAFETY. PATIENT VOIDED 75 YELLOW URINE. V/S AND I&O'S COMPLETED. PATIENT DID WASH HANDS AND FACE AND ORAL CARE. CRYO FILLED WITH ICE. FOOT SCD AND CPOX ARE ON. CUP OF ICE WATER REFILLED. CALL LIGHT WITHIN REACH.
--- NOTE | 2025-04-01 22:00 | NUR ---
PATIENT RESTING IN BED. SCHEDULED MEDICATIONS ADMINISTERED. ASSESSMENT COMPLETE. PATIENT DENIES PAIN. NO NUMBNESS OR TINGLING IN BLE. R KNEE DRESSING C/D/I. TEDHOSE, FOOT PUMPS, ROLLED TOWELS UNDER HEELS AND CRYOCUFF WITH LINEN BARRIER IN PLACE. PATIENT DENIES FURTHER NEEDS AT THIS TIME. CALL LIGHT IN REACH.
[2025-04-02] VITALS (9 sets, daily range): BP systolic 105–120; BP diastolic 56–76
--- NOTE | 2025-04-02 00:15 | NUR ---
PATIENT RESTING IN BED ON BACK WITH EYES CLOSED. RESPIRATIONS EVEN AND UNLABORED. PATIENT CPAP IN PLACE. PATIENT DENIES FURTHER NEEDS. CALL LIGHT IN REACH.
--- NOTE | 2025-04-02 05:35 | NUR ---
PATIENT RESTING IN BED. TEDHOSE, FOOT PUMPS, TOWELS UNDER HEELS, AND CRYOCUFF REMAINS IN PLACE. R KNEE DRESSING C/D/I. PATIENT DENIES PAIN. FRESH ICE PLACED IN CRYO CUFF. PATIENT DENIES FURTHER NEEDS. CALL LIGHT IN REACH.
--- NOTE | 2025-04-02 07:26 | NUR ---
REPORT RECEIVED FROM MIRIAN ARAUJO. PATIENT IN BED, CALL LIGHT AND PERSONAL BELONGINGS IN REACH OF PATIENT. PATIENT DENIES CONCERNS.
--- NOTE | 2025-04-02 07:58 | NUR ---
PATIENT TRANSFERRED FROM BED TO CHAIR. SCHEDULED MEDICATIONS ADMINISTERED, ASSESMENT COMPLETED. CALL LIGHT AND PERSONAL BELONGINGS IN REACH OF PATIENT. PATIENT DENEIS CONCERNS. CPOX, HEEL PROTECTION, IVAN HOSE, AND VENOUS FOOT PUMPS IN PLACE.
--- NOTE | 2025-04-02 08:52 | NUR ---
PATIENT IN CHAIR, BREAKFAST AT BEDSIDE. CALL LIGHT AND PERSONAL BELONGINGS IN REACH OF PATIENT.
--- NOTE | 2025-04-02 09:06 | NUR ---
Spoke with Randal. He plans on dc tomorrow. I called and they have accepted him. I left a message for Dr. To I will leave the orders at the dictation station for him. Pt's transport will arrive at 12n.
--- NOTE | 2025-04-02 09:45 | NUR ---
PATIENT IN CHAIR AT THIS TIME. THIS CD TECHNICIAN ASSISTE PATIENT FROM BATHROOM TO CHAIR. VITALS AND I&O'S CHARTED. CALL LIGHT WITHIN REACH, NO FURTHER NEEDS.
--- NOTE | 2025-04-02 11:33 | NUR ---
PATIENT IN CHAIR AT THIS TIME. VEHICLE OPERATOR CHANGED PATIENT LINENS AND CHARTED HOURLY ROUNDS. CALL LIGHT WITHIN REACH, NO FURTHER NEEDS.
--- NOTE | 2025-04-02 12:45 | NUR ---
PATIENT IN CHAIR, LUNCH AT BEDSIDE. CRYO CUFF REFILLED. CRYO CUFF, IVAN HOSE, CPOX, AND HEEL PROTECTION IN PLACE. PATIENT DENIES CONCERNS. CALL LIGHT AND PERSONAL BELONGINGS IN REACH OF PATIENT.
--- NOTE | 2025-04-02 13:32 | NUR ---
PATIENT IN CHAIR AT THIS TIME. MEDICAL ASST CHARTED VITALS AND I&O'S. CALL LIGHT WITHIN REACH, NO FURTHER NEEDS.
--- NOTE | 2025-04-02 15:10 | NUR ---
PATIENT IN CHAIR AT THIS TIME. DANCE PROFESSOR WALKED WITH PATIENT ONE LAP AROUND THE [place]. PATIENT ABLE TO ALSO BRUSH TEETH AND SHAVE FACE. CALL LIGHT WITHIN REACH, NO FURTHER NEEDS AT THIS TIME. CALL LIGHT WITHIN REACH, NO FURTHER NEEDS.
--- NOTE | 2025-04-02 16:09 | NUR ---
PATIENT UP IN CHAIR. SCHEDULED MEDICATIONS ADMINISTERED. WOUND ASSESMENT COMPLETED. PATIENT DENIES CONCERNS. CALL LIGHT AND PERSONAL BELONGINGS IN REACH OF PATIENT.
--- NOTE | 2025-04-02 18:07 | NUR ---
PATIENT IN BED AT THIS TIME. MAINTENANCE MECHANIC MILLWRIGHT CHARED VITALS AND I&O'S. CALL LIGHT WITHIN REACH, NO FURTHER NEEDS.
--- NOTE | 2025-04-02 18:44 | NUR ---
PATIENT IN CHAIR. CALL LIGHT AND PERSONAL BELONGINGS IN REACH. PT'S MEDICATION QUESTIONS ANSWERED. PATIENT PROVIDED WITH PRUNE JUICE AT HIS REQUEST. PATIENT DENIES FURTHER CONCERNS AT THIS TIME.
--- NOTE | 2025-04-02 19:21 | NUR ---
REPORT RECEIVED FROM DAY SHIFT RN. PATIENT RESTING IN BED WITH EYES CLOSED. RESPIRATIONS EVEN AND UNLABORED. CALL LIGHT IN REACH.
--- NOTE | 2025-04-02 21:30 | NUR ---
PATIENT RESTING IN BED. SCHEDULED MEDICATIONS ADMINISTERED. PATIENT DENIES PAIN. ASSESSMENT COMPLETE. RIGHT KNEE MIGUEL WRAP C/D/I. FRESH ICE PLACED IN CRYO CUFF, CRYO CUFF IN PLACE WITH LINEN BARRIER, TEDOSE, FOOT PUMPS, AND TOWEL ROLLED UP UNDER HEELS. PATIENT DENIES FURTHER NEEDS. BED ALARM ON. CALL LIGHT IN REACH.
--- NOTE | 2025-04-03 00:05 | NUR ---
PATIENT RESTING IN BED ON BACK WITH EYES CLOSED. RESPIRATIONS EVEN AND UNLABORED. CALL LIGHT IN REACH. CPAP ON.
--- NOTE | 2025-04-03 02:48 | NUR ---
PATIENT RESTING IN BED ON BACK. DENIES NEEDS AT THIS TIME. CALL LIGHT IN REACH. BED ALARM ON.
--- NOTE | 2025-04-03 04:39 | NUR ---
CALL LIGHT ANSWERED. PT NEEDED TO USE BATHROOM. PT SBA TO BATHROOM WITH FWW. PT INSTRUCTED TO CALL WHEN READY. BATHROOM CALL LIGHT ANSWERED. PT VOIDED AND HAD SMALL FORMED STOOL. PT ASSISTED BACK TO BED. PT STATES NO FURTHER NEEDS AT THIS TIME. CALL LIGHT WITHIN REACH.
[2025-04-03 05:44] VITALS: BP 114/71
--- NOTE | 2025-04-03 05:47 | NUR ---
EARLY CHILDHOOD SPECIALIST OBTAINED VITALS AND I&O. PT STATES NO FURTHER NEEDS AT THIS TIME. CALL LIGHT WITHIN REACH AND BED ALARM ON.
[2025-04-03] MEDS ORDERED: OXYCODONE HCL5 M1 PO (06:52)
--- NOTE | 2025-04-03 07:15 | NUR ---
VERBAL REPORT RECIEVED BY MIRIAN ARAUJO. PATIENT RESTING IN BED EYES CLOSED, BREATHING EVEN AND UNALBORED. CALL LIGHT IN REACH. NO REQUESTS AT THIS TIME.
--- NOTE | 2025-04-03 07:15 | NUR ---
VERBAL REPORT RECIVED BY MIRIAN ARAUJO. PATIENT RESTING AWAKE IN BED, DENIES ANY NEEDS AT THIS TIME. CALL LIGHT IN REACH.
--- NOTE | 2025-04-03 08:35 | NUR ---
THIS RN ASSISTS PATIENT TO RESTROOM VIA SBA WITH FWW. PATIENT TOLERATED WELL. PULL CORD IN BATHROOM WITH IN REACH.
[2025-04-03 08:45] VITALS: BP 134/69
--- NOTE | 2025-04-03 08:48 | NUR ---
PATIENT IS IN HIS CHAIR AT THIS TIME, CRANE ASSEMBLER CHARTED VITALS AND I&O'S, ASSISTED PATIENT TO THE RESTROOM, PATIENT WASHED HIS FACE AND BRUSHED HIS TEETH. BACK TO HIS CHAIR, CALL LIGHT WITH IN REACH AND NOTHING ELSE NEEDED AT THIS TIME.
--- NOTE | 2025-04-03 10:13 | NUR ---
MORNING ASSESSMENT COMPLETE. PATIENT UP IN RECLINER CRYO CUFF, IVAN HOSE IN PLACE, LEG ELEVATED. DISCUSSED POC WITH PATIENT. NO FURTHER NEEDS AT THIS TIME. CALL LIGHT IN REACH.
--- NOTE | 2025-04-03 10:40 | NUR ---
ORDERS FAXED TO [facility]. PATIENT TO GO BY [facility] AT 12. NO FUTHER NEEDS OR QUESTIONS.
[2025-04-03 11:17] VITALS: BP 166/66
--- NOTE | 2025-04-03 11:36 | NUR ---
IMM AND APPEAL PROCESS EXPLAINED TO PATIENT. PT VERBALIZED UNDERSTANDING WITHOUT QUESTIONS. SIGNATURE OBTAINED AND COPY PROVIDED TO PATIENT.
--- NOTE | 2025-04-03 12:30 | NUR ---
REPORT CALLED AND GIVEN TO KAVITHA WITH [facility] AT THIS TIME.
== END 2025-04-03 11:39 | DRG 470 ==
LOC: DS 05:20 → MS 09:40
PROVIDERS: ADMIT Specialist; ATTEND Specialist
PROC: 0SRC0JZ Replacement of Right Knee Joint with Synthetic Substitute, Open Approach (ICD-10-PCS; principal; 2025-03-31 07:00)
PROC: 3E03329 Introduction of Other Anti-infective into Peripheral Vein, Percutaneous Approach (ICD-10-PCS; principal; 2025-03-31 07:00)
DX: M17.11 Unilateral primary osteoarthritis, right knee (principal); E78.00 Pure hypercholesterolemia, unspecified; G47.33 Obstructive sleep apnea (adult) (pediatric); Z98.890 Other specified postprocedural states; Z87.19 Personal history of other diseases of the digestive system; Z88.8 Allergy status to other drugs, medicaments and biological substances; Z79.899 Other long term (current) drug therapy; Z79.82 Long term (current) use of aspirin
CPT/HCPCS: 01402; 36415; 64447; 64454; 73560; 80053; 85025; 94762; 97110; 97116; 97161; 97165; 97530; 97535; A9270; C1713; C1776; J0131; J0165; J0688; J1885; J2003; J2405; J2704; J2795; J3010; J7121; J7999